=== PATIENT | female | born 1985 | race Caucasian/White ===

== ENCOUNTER 2019-03-29 18:33 | Emergency (ER) | payer SELFPAY ==
--- NOTE | 2019-03-29 20:04 | CR ---
INDICATION: Cough for 3 weeks COMPARISON: None available. FINDINGS: PA and lateral views of the chest were obtained. The lungs are clear. No focal or diffuse infiltrates are present. The heart is normal in size. The mediastinum is normal in appearance. The osseous structures are normal in appearance for the patient`s age. IMPRESSION: Normal chest 2 views. Dictated by Kvng Childs MD @ Mar 29 2019 8:03PM Signed by Dr. Kvng Childs @ Mar 29 2019 8:03PM
--- NOTE | 2019-03-29 20:07 | EDM.PDOC ---
ED HPI GENERAL MEDICAL PROBLEM - General Chief Complaint: ENT Problem Stated Complaint: PT HAS COUGH Time Seen by Provider: 03/29/19 20:06 Source of Information: Reports: Patient History Limitations: Reports: No Limitations - History of Present Illness INITIAL COMMENTS - FREE TEXT/NARRATIVE: HISTORY AND PHYSICAL: History of present illness: Patient is a 33-year-old female presents to the ED with complaint of cough x 3 weeks. She reports nasal congestion and coughing up greenish sputum. She has an episode of vomiting today. Denies chest pain, abdominal pain, diarrhea, shortness of breath. She smokes 1/2 ppd x 10 years. Review of systems: As per history of present illness and below otherwise all systems reviewed and negative. Past medical history: As per history of present illness and as reviewed below otherwise noncontributory. Surgical history: As per history of present illness and as reviewed below otherwise noncontributory. Social history: No reported history of drug or alcohol abuse. Family history: As per history of present illness and as reviewed below otherwise noncontributory. Physical exam: General: Patient sitting comfortably in no acute distress and nontoxic appearing HEENT: Atraumatic, normocephalic, pupils reactive, negative for conjunctival pallor or scleral icterus, mucous membranes moist, throat clear, neck supple, nontender, trachea midline. No meningeal signs. Lungs: Clear to auscultation, breath sounds equal bilaterally, chest nontender. Heart: S1S2, regular, negative for clicks, rubs, or overt murmur. Abdomen: Soft, nondistended, nontender. Negative for masses or hepatosplenomegaly. Negative for costovertebral tenderness. No rigidity, rebound , guarding. Pelvis: Stable nontender. Genitourinary: Deferred. Rectal: Deferred. Extremities: Atraumatic, negative for cords or calf pain. Neurovascular unremarkable. Neuro: Awake, alert, oriented. Cranial nerves II through XII unremarkable. Cerebellum unremarkable. Motor and sensory unremarkable throughout. Exam nonfocal. Notes: Diagnostics: Chest x-ray Therapeutics: [] Prescriptions: Azithromycin Ventolin inhaler Impression: Bronchitis Plan: Take medications as instructed Follow up with primary care provider Return to ED as needed as discussed Definitive disposition and diagnosis as appropriate pending reevaluation and review of above. - Related Data Allergies Allergy/AdvReac Type Severity Reaction Status Date / Time No Known Allergies Allergy Verified 03/29/19 18:53 Home Meds: Home Meds Albuterol [Ventolin HFA] 1 puff INH Q4H #1 inhaler 03/29/19 [Rx] Azithromycin [Zithromax] 250 mg PO ASDIRECTED #1 dosepk 03/29/19 [Rx] Past Medical History - Past Health History Medical/Surgical History: Denies Medical/Surgical History - Infectious Disease History Infectious Disease History: Reports: Chicken Pox, Hepatitis C, Shingles Social & Family History - Family History Family Medical History: Noncontributory - Tobacco Use Smoking Status *Q: Current Every Day Smoker Years of Tobacco use: 15 Packs/Tins Daily: 0.5 - Caffeine Use Caffeine Use: Reports: Coffee - Recreational Drug Use Recreational Drug Use: No ED ROS ENT - Review of Systems Review Of Systems: ROS reveals no pertinent complaints other than HPI. ED EXAM, ENT - Physical Exam Exam: See Below (see dictation) Course - Vital Signs Last Recorded V/S: Last Vital Signs Temp 97.7 F 03/29/19 18:54 Pulse 117 H 03/29/19 18:54 Resp 16 03/29/19 18:54 BP 119/92 H 03/29/19 18:54 Pulse Ox 99 03/29/19 18:54 - Orders/Labs/Meds Labs: Laboratory Tests 03/29/19 Range/Units 19:15 Urine HCG, Qual NEGATIVE (NEGATIVE) Departure - Departure Time of Disposition: 20:06 Disposition: Home, Self-Care 01 Condition: Good Clinical Impression: Bronchitis - Discharge Information Prescriptions: Albuterol [Ventolin HFA] 1 puff INH Q4H #1 inhaler Azithromycin [Zithromax] 250 mg PO ASDIRECTED #1 dosepk Instructions: Acute Bronchitis, Adult Referrals: PCP,None [Primary Care Provider] - Forms: ED Department Discharge Additional Instructions: The following information is given to patients seen in the emergency department who are being discharged to home. This information is to outline your options for follow-up care. We provide all patients seen in our emergency department with a follow-up referral. The need for follow-up, as well as the timing and circumstances, are variable depending upon the specifics of your emergency department visit. If you don't have a primary care physician on staff, we will provide you with a referral. We always advise you to contact your personal physician following an emergency department visit to inform them of the circumstance of the visit and for follow-up with them and/or the need for any referrals to a consulting specialist. The emergency department will also refer you to a specialist when appropriate. This referral assures that you have the opportunity for follow-up care with a specialist. All of these measure are taken in an effort to provide you with optimal care, which includes your follow-up. Under all circumstances we always encourage you to contact your private physician who remains a resource for coordinating your care. When calling for follow-up care, please make the office aware that this follow-up is from your recent emergency room visit. If for any reason you are refused follow-up, please contact the [facility] Emergency Department at and asked to speak to the emergency department charge nurse. [facility] [address] [place] [id number] [facility] [address] [place] [id number] Take medication as instructed Follow up with primary care provider Return to ED as needed as discussed
== END 2019-03-29 20:10 | disposition home or self-care (01) ==
LOC: MW.ED 18:33
DX: J40 Bronchitis, not specified as acute or chronic (principal); F17.200 Nicotine dependence, unspecified, uncomplicated
CPT/HCPCS: 71046; 71046-26; 81025; 99283-25

== ENCOUNTER 2020-02-06 01:57 | Emergency (ER) | payer SELFPAY ==
[2020-02-06] MEDS ORDERED: predniSONE 20 MG Tab PO ONE (02:18)
[2020-02-06] MEDS ORDERED: Albuterol/Ipratropium 3.0-0.5 MG/3 ML Neb Soln NEB ONE (02:18)
[2020-02-06] MEDS ORDERED: diphenhydrAMINE 50 MG Cap PO ONE (02:19)
[2020-02-06] MEDS ORDERED: Albuterol 8 GM Inhaler INH ONE ×2 (02:33→02:40)
[2020-02-06] MEDS ORDERED: Albuterol HFA 18 Gm Inhaler ONE (02:40)
--- NOTE | 2020-02-06 02:41 | EDM.PDOC ---
ED HPI GENERAL MEDICAL PROBLEM - General Chief Complaint: Respiratory Problem Stated Complaint: COUGH, LOTS OF PHLEGM Time Seen by Provider: 02/06/20 02:13 - History of Present Illness INITIAL COMMENTS - FREE TEXT/NARRATIVE: HISTORY AND PHYSICAL: History of present illness: This is a 34-year-old female with a history significant for allergic bronchitis since she has moved to [place] 1 year ago who presents ER today secondary to increased shortness of breath and wheezing that started ever since she moved in with her sister 5 days ago. Patient reports that her sister has 5 dogs and 4 cats that live with her in a small apartment and that she is currently sleeping in the basement. She reports that she has had some clear to green productive sputum and rhinorrhea. Patient denies any recent fevers, shakes, chills, na usea, vomiting, diarrhea, dysuria, frequency, urgency. Patient reports that she has chest pain with deep inspiration and cough. Patient reports no history of hypertension, diabetes, liver, lung, kidney problems. Patient reports she is smokes cigarettes. Patient has any alcohol. Patient has no known drug allergies. Review of systems: As per history of present illness and below otherwise all systems reviewed and negative. Past medical history: As per history of present illness and as reviewed below otherwise noncontributory. Surgical history: As per history of present illness and as reviewed below otherwise noncontributory. Social history: No reported history of drug or alcohol abuse. Family history: As per history of present illness and as reviewed below otherwise noncontribu tory. Physical exam: Constitutional: Patient is oriented to person, place, and time. Appears well- developed and well-nourished. No distress. HEENT: Moist mucous membranes Head: Normocephalic and atraumatic Eyes: Right eye exhibits no discharge. Left eye exhibits no discharge. No scleral icterus Neck: Normal range of motion. No tracheal deviation present. Cardiovascular: Normal rate and regular rhythm. Pulmonary: Effort normal, no respiratory distress. Patient with mild inspiratory and expiratory wheezing. No respiratory distress. Abdominal: No distention Musculoskeletal: Normal range of motion Neurologic: Alert and oriented to person, place and time. Skin: [place], warm and dry. Psychiatric: Normal mood and affect. Behavior is normal. Judgment and thought content normal. Nursing note and vital signs have been reviewed Assessment and plan: 34-year-old female who presents ER today with likely reactive airway disease from cat dander/allergies. Patient will be started on prednisone and albuterol. In the ED the patient was given a DuoNeb with significant improvement in her symptoms. Patient denies any coronavirus exposures. Patient be discharged home with albuterol given in the ED as well as a prescription for prednisone. Patient pulse ox is 99% on room air. Patient is ambulating the ED without any dyspnea. Patient stable for discharge. Reassessment at the time of disposition demonstrates that the patient is in no acute distress. The patient has remained stable throughout the entire ED visit and is without objective evidence for acute process requiring urgent intervention or hospitalization. The patient is stable for discharge, counseling is provided as documented above, discussed symptomatic treatment and specific conditions for return. I have spoken with the patient/caregive and discussed todays findings, in addition to providing specific details for the plan of care. Questions are answered and there is agreement with the plan. [] Definitive disposition and diagnosis as appropriate pending reevaluation and review of above. - Related Data Allergies Allergy/AdvReac Type Severity Reaction Status Date / Time No Known Allergies Allergy Verified 02/06/20 02:12 Home Meds: Home Meds predniSONE [Prednisone] 50 mg PO DAILY #5 tablet 02/06/20 [Rx] Past Medical History - Past Health History Medical/Surgical History: Denies Medical/Surgical History HEENT History: Reports: None Cardiovascular History: Reports: None Respiratory History: Reports: None Gastrointestinal History: Reports: None Genitourinary History: Reports: None BACK END DEVELOPER History: Reports: None Musculoskeletal History: Reports: None Neurological History: Reports: None Psychiatric History: Reports: Anxiety, Depression Endocrine/Metabolic History: Reports: None Insulin Pump Model and Vending Machine Attendant: None Hematologic History: Reports: None Immunologic History: Reports: None Oncologic (Cancer) History: Reports: None Dermatologic History: Reports: None - Infectious Disease History Infectious Disease History: Reports: None - Past Surgical History Head Surgeries/Procedures: Reports: None Social & Family History - Family History Family Medical History: Noncontributory - Tobacco Use Smoking Status *Q: Current Every Day Smoker Years of Tobacco use: 10 Packs/Tins Daily: 0.4 - Caffeine Use Caffeine Use: Reports: Coffee, Soda - Recreational Drug Use Recreational Drug Use: No ED ROS GENERAL - Review of Systems Review Of Systems: Comprehensive ROS is negative, except as noted in HPI. ED EXAM, GENERAL - Physical Exam Exam: See Below Course - Vital Signs Last Recorded V/S: Last Vital Signs Temp 96.8 F L 02/06/20 02:10 Pulse 106 H 02/06/20 02:10 Resp 18 02/06/20 02:10 BP 137/89 02/06/20 02:10 Pulse Ox 100 02/06/20 02:10 - Orders/Labs/Meds Orders: Active Orders 24 hr Category Date Time Status RT Aerosol Therapy [RC] ASDIRECTED Care 02/06/20 02:18 Active Albuterol [Ventolin HFA] Med 02/06/20 02:33 Once 1 gm INH ONETIME ONE Meds: Medications Discontinued Medications Generic Name Dose Route Start Last Admin Trade Name Gerhard PRN Reason Stop Dose Admin Albuterol 1 gm 02/06/20 02:33 Ventolin Hfa INH 02/06/20 02:34 ONETIME ONE Albuterol/Ipratropium 3 ml 02/06/20 02:18 02/06/20 02:23 Duoneb 3.0-0.5 Mg/3 Ml NEB 02/06/20 02:19 3 ml ONETIME ONE Administration Diphenhydramine HCl 50 mg 02/06/20 02:19 02/06/20 02:23 Benadryl PO 02/06/20 02:20 50 mg ONETIME ONE Administration Prednisone 50 mg 02/06/20 02:18 02/06/20 02:23 Prednisone PO 02/06/20 02:19 50 mg ONETIME ONE Administration Departure - Departure Time of Disposition: 02:41 Disposition: Home, Self-Care 01 Condition: Good Clinical Impression: Bronchitis - Discharge Information Instructions: Upper Respiratory Infection, Adult, [id number], Metered Dose Inhaler (No Spacer Used), Acute Bronchitis, Adult, [id number] Referrals: PCP,None [Primary Care Provider] - Additional Instructions: Your symptoms today appear to be likely related to allergic reaction either to environment or dog/cat dander. You will be given an inhaler today to use. You can use 2 to 4 puffs every 6 hours as needed for shortness of breath/wheezing. You will also be given a prescription for prednisone to take daily for the next 5 days. You can also take Benadryl to assist you with your symptoms as this is likely related to an allergic reaction. You may want to consider changing locations where you will be living and seeing if that helps in your symptoms. The following information is given to patients seen in the emergency department who are being discharged to home. This information is to outline your options for follow-up care. We provide all patients seen in our emergency department with a follow-up referral. The need for follow-up, as well as the timing and circumstances, are variable depending upon the specifics of your emergency department visit. If you don't have a primary care physician on staff, we will provide you with a referral. We always advise you to contact your personal physician following an emergency department visit to inform them of the circumstance of the visit and for follow-up with them and/or the need for any referrals to a consulting specialist. The emergency department will also refer you to a specialist when appropriate. This referral assures that you have the opportunity for follow-up care with a specialist. All of these measure are taken in an effort to provide you with optimal care, which includes your follow-up. Under all circumstances we always encourage you to contact your private physician who remains a resource for coordinating your care. When calling for follow-up care, please make the office aware that this follow-up is from your recent emergency room visit. If for any reason you are refused follow-up, please contact the [facility] Emergency Department at and asked to speak to the emergency department charge nurse. Sepsis Event Note (ED) - Evaluation Sepsis Screening Result: No Definite Risk - Focused Exam Vital Signs: Vital Signs Temp Pulse Resp BP Pulse Ox 02/06/20 02:10 96.8 F L 106 H 18 137/89 100 - My Orders Last 24 Hours: My Active Orders 02/06/20 02:18 RT Aerosol Therapy [RC] ASDIRECTED 02/06/20 02:33 Albuterol [Ventolin HFA] 1 gm INH ONETIME ONE - Assessment/Plan Last 24 Hours: My Active Orders 02/06/20 02:18 RT Aerosol Therapy [RC] ASDIRECTED 02/06/20 02:33 Albuterol [Ventolin HFA] 1 gm INH ONETIME ONE
== END 2020-02-06 02:50 | disposition home or self-care (01) ==
LOC: MW.ED 01:57
DX: J40 Bronchitis, not specified as acute or chronic (principal); F17.210 Nicotine dependence, cigarettes, uncomplicated
CPT/HCPCS: 99284; A9270; 99283; J3535-GY; J7620-GY

== ENCOUNTER 2020-03-25 22:41 | Emergency (ER) | payer OTHER ==
[2020-03-25] MEDS ORDERED: Prochlorperazine 10 MG/2 ML SDV IVPUSH ONE (23:13)
[2020-03-25] MEDS ORDERED: HYDROmorphone 2 MG/ML Syringe IVPUSH ONE (23:13)
[2020-03-25] MEDS ORDERED: Ketorolac 15 MG/ML SDV IVPUSH ONE (23:13)
--- NOTE | 2020-03-25 23:33 | EDM.PDOC ---
ED HPI GENERAL MEDICAL PROBLEM - General Chief Complaint: Abdominal Pain Stated Complaint: LOWER RT ABDOMINAL PAIN Time Seen by Provider: 03/25/20 22:44 - History of Present Illness INITIAL COMMENTS - FREE TEXT/NARRATIVE: HISTORY AND PHYSICAL: History of present illness: This 34-year-old female is currently incarcerated and was brought by the long-term staff after having abdominal pain that began yesterday afternoon and gradually worsened and is now focused in the right lower quadrant. She has had some nausea and vomiting and had no improvement with [id number] Motrin. The patient reports that she has no vaginal discharge or bleeding. She denies being . She is an IV drug abuser but currently has not had any intravenous drugs for approximately 1 month because she has been incarcerated. The pain is excruciating. Worse with movement. Better with sitting with her legs and knees bent. Review of systems: A 10-point review of systems, other than pertinent positives and negatives as stated per HPI, is otherwise negative. Past medical history: As per history of present illness and as reviewed below otherwise noncontributory. Surgical history: As per history of present illness and as reviewed below otherwise noncontributory. Social history: No reported history of drug or alcohol abuse. Family history: As per history of present illness and as reviewed below otherwise noncontributory. Physical exam: VITAL SIGNS: Reviewed. GENERAL: Appears to be in acute pain holding the right lower quadrant HEAD: No signs of head trauma. EYES: Pupils are equal. Extraocular motions intact. EARS: Hearing grossly intact. MOUTH: Oropharynx is normal. NECK: No adenopathy, no JVD. CHEST: Chest with clear breath sounds bilaterally. No wheezes, rales, or rhonchi. CARDIAC: Regular rate and rhythm. Normal S1 and S2, without murmurs, gallops, or rubs. VASCULAR: Peripheral pulses normal and equal in all extremities. ABDOMEN: Soft, rebound and guarding in the right lower quadrant, mild peritoneal signs in the other quadrants. No distention. No pulsatile masses MUSCULOSKELETAL: Good range of motion of all major joints. Extremities without clubbing, cyanosis or edema. NEUROLOGIC EXAM: Alert and oriented x 3. No focal sensory or motor deficits. Speech normal. Follows commands. PSYCHIATRIC: Mood normal. SKIN: No rash or lesions. LIMITED ABDOMINAL ULTRASOUND: Self-performed and read; Indication: Trauma and / or Hypotension 1. No Free fluid seen in the hepatorenal space (Morison's Pouch) 2. No Free Fluid seen in the suprapubic region (Pelvis) 3. No Free Fluid seen in the splenorenal space (LUQ) FINDINGS: No evidence of intraperitoneal free fluid IMPRESSION: Negative FAST exam. Signed by Brown Donald MD Procedure: Limited Abdominal Ultrasound - Right Upper Quadrant Performed and interpreted by me; Indication: Right upper quadrant/epigastric pain/flank pain Findings: -No gallstones -No pericholecystic fluid -Normal gallbladder wall thickness -Common Bile duct normal Interpretation: Normal right upper quadrant ultrasound No evidence of gallstones No evidence of cholecystitis Signed by Borwn Donald M.D. Limited Abdominal Ultrasound by ED MD Self-performed and read Location: Abdomen, RLQ Indication: Pain Probe: Curvilinear #1: Iliac Artery and Vein identified #2: No dilated fluid filled tubular structure identified #3: Some free fluid noted in the RLQ Impression: Indeterminate evidence of Appendicitis by POCUS Ultrasound Signed by Brown Donald MD Initial Differential Diagnosis & Plan: the differential diagnosis would include appendicitis, cholecystitis, pyelonephritis, pancreatitis, mesenteric infarction, diverticulitis, small bowel obstruction, volvulus, and ACS. Suspicious for kidney stone versus appendicitis versus ruptured ovarian cyst. Ultrasound is encouraging as there is trace amount of fluid in the right lower quadrant otherwise negative. I will obtain a CT scan, labs, and reevaluate the patient. I will give pain medications, nausea medications and continue to monitor Definitive disposition and diagnosis as appropriate pending reevaluation and review of above. Right Middle Abdomen Pain Score (Numeric/FACES): 10 - Related Data Allergies Allergy/AdvReac Type Severity Reaction Status Date / Time No Known Allergies Allergy Verified 02/06/20 02:12 Home Meds: Home Meds predniSONE [Prednisone] 50 mg PO DAILY #5 tablet 02/06/20 [Rx] Past Medical History - Past Health History Medical/Surgical History: Denies Medical/Surgical History HEENT History: Reports: None Cardiovascular History: Reports: None Respiratory History: Reports: None Gastrointestinal History: Reports: None Genitourinary History: Reports: None UNINDENTURED APPRENTICE History: Reports: None Musculoskeletal History: Reports: None Neurological History: Reports: None Psychiatric History: Reports: Anxiety, Depression Endocrine/Metabolic History: Reports: None Insulin Pump Model and Media Relations Associate: None Hematologic History: Reports: None Immunologic History: Reports: None Oncologic (Cancer) History: Reports: None Dermatologic History: Reports: None - Infectious Disease History Infectious Disease History: Reports: None - Past Surgical History Head Surgeries/Procedures: Reports: None Social & Family History - Family History Family Medical History: Noncontributory - Caffeine Use Caffeine Use: Reports: Coffee, Soda ED ROS GENERAL - Review of Systems Review Of Systems: See Below (noted) ED EXAM, GI/ABD - Physical Exam Exam: See Below (noted) Course - Vital Signs Last Recorded V/S: Last Vital Signs Temp 96.9 F 03/25/20 23:00 Pulse 83 03/25/20 23:00 Resp 20 03/25/20 23:00 BP 123/86 03/25/20 23:00 Pulse Ox 98 03/25/20 23:[address] reveals that she has severe colonic fecal retention which is the likely cause of her pain. Patient will receive an enema here in the emergency department along with lactulose. I will send her home with magnesium citrate and Metamucil. She has been having bowel movements so I do not feel that this represents obstruction. I will send her back to the long-term for management in the long-term with these [id number] medications. My diagnostic impression: 1. Severe colonic fecal retention 2. History of IV drug abuse with opioid dependence - Orders/Labs/Meds Orders: Active Orders 24 hr Category Date Time Status UA RFX LEXIE AND CULT IF INDIC [URIN] Stat Lab 03/25/20 23:12 Ordered Labs: Laboratory Tests 03/25/20 03/25/20 Range/Units 23:10 23:10 WBC 6.45 (4.0-11.0) K/uL RBC 4.35 (4.30-5.90) M/uL Hgb 13.5 (12.0-16.0) g/dL Hct 39.4 (36.0-46.0) % MCV 90.6 (80.0-98.0) fL MCH 31.0 (27.0-32.0) pg MCHC 34.3 (31.0-37.0) g/dL RDW Std Deviation 47.5 (28.0-62.0) fl RDW Coeff of Sean 14 (11.0-15.0) % Plt Count 205 (150-400) K/uL MPV 10.10 (7.40-12.00) fL Neut % (Auto) 52.1 (48.0-80.0) % Lymph % (Auto) 41.1 H (16.0-40.0) % [place] % (Auto) 5.7 (0.0-15.0) % Eos % (Auto) 0.8 (0.0-7.0) % Baso % (Auto) 0.3 (0.0-1.5) % Neut # (Auto) 3.4 (1.4-5.7) K/uL Lymph # (Auto) 2.7 H (0.6-2.4) K/uL [place] # (Auto) 0.4 (0.0-0.8) K/uL Eos # (Auto) 0.1 (0.0-0.7) K/uL Baso # (Auto) 0.0 (0.0-0.1) K/uL Sodium 140 (136-145) mmol/L Potassium 3.8 (3.5-5.1) mmol/L Chloride 105 (98-107) mmol/L Carbon Dioxide 24.3 (21.0-32.0) mmol/L BUN 14 (7.0-18.0) mg/dL Creatinine 0.8 (0.6-1.0) mg/dL Est Cr Clr Drug Dosing 90.00 mL/min Estimated GFR (MDRD) > 60.0 ml/min Glucose 83 (74-106) mg/dL Calcium 9.2 (8.5-10.1) mg/dL Total Bilirubin 1.1 H (0.2-1.0) mg/dL AST 13 L (15-37) IU/L ALT 26 (14-63) IU/L Alkaline Phosphatase 73 (46-116) U/L Total Protein 7.8 (6.4-8.2) g/dL Albumin 4.3 (3.4-5.0) g/dL Globulin 3.5 (2.6-4.0) g/dL Albumin/Globulin Ratio 1.2 (0.9-1.6) HCG, Quant 1.0 mIU/mL Meds: Medications Discontinued Medications Generic Name Dose Route Start Last Admin Trade Name Freq PRN Reason Stop Dose Admin Hydromorphone HCl 1 mg 03/25/20 23:13 03/25/20 23:22 Dilaudid IVPUSH 03/25/20 23:14 1 mg ONETIME ONE Administration Ketorolac Tromethamine 15 mg 03/25/20 23:13 03/25/20 23:22 Toradol IVPUSH 03/25/20 23:14 15 mg ONETIME ONE Administration Lactulose 10 gm 03/26/20 00:42 Chronulac PO 03/26/20 00:43 ONETIME ONE Prochlorperazine Edisylate 10 mg 03/25/20 23:13 03/25/20 23:20 Compazine IVPUSH 03/25/20 23:14 10 mg ONETIME ONE Administration Departure - Departure Time of Disposition: 00:46 (DC to long-term ) Disposition: Home, Self-Care 01 Clinical Impression: Fecal impaction of colon - Discharge Information *PRESCRIPTION DRUG MONITORING PROGRAM REVIEWED*: Not Applicable *COPY OF PRESCRIPTION DRUG MONITORING REPORT IN PATIENT MELANY: Not Applicable Instructions: Constipation, Adult, [id number] Referrals: PCP,None [Primary Care Provider] - Forms: ED Department Discharge Additional Instructions: The following information is given to patients seen in the emergency department who are being discharged to home. This information is to outline your options for follow-up care. We provide all patients seen in our emergency department with a follow-up referral. The need for follow-up, as well as the timing and circumstances, are variable depending upon the specifics of your emergency department visit. If you don't have a primary care physician on staff, we will provide you with a referral. We always advise you to contact your personal physician following an emergency department visit to inform them of the circumstance of the visit and for follow-up with them and/or the need for any referrals to a consulting specialist. The emergency department will also refer you to a specialist when appropriate. This referral assures that you have the opportunity for follow-up care with a specialist. All of these measure are taken in an effort to provide you with optimal care, which includes your follow-up. Thank you for coming to the [facility] urgency department for your care today. It was Dr. Donald's pleasure to take care of you. Please follow-up with medical at the long-term. You have severe colonic fecal retention. This is too much stool/feces in the colon causing distention and pain. This should improve by taking medications to help move your bowels. I have prescribed medications that I think will help. Please return for persistent vomiting, uncontrolled pain, fever or any other concerns. Under all circumstances we always encourage you to contact your private physician who remains a resource for coordinating your care. When calling for follow-up care, please make the office aware that this follow-up is from your recent emergency room visit. If for any reason you are refused follow-up, please contact the [facility] Emergency Department at and asked to speak to the emergency department charge nurse. Sepsis Event Note (ED) - Evaluation Sepsis Screening Result: No Definite Risk - Focused Exam Vital Signs: Vital Signs Temp Pulse Resp BP Pulse Ox 03/25/20 23:00 96.9 F 83 20 123/86 98 - My Orders Last 24 Hours: My Active Orders 03/25/20 23:12 UA RFX LEXIE AND CULT IF INDIC [URIN] Stat - Assessment/Plan Last 24 Hours: My Active Orders 03/25/20 23:12 UA RFX LEXIE AND CULT IF INDIC [URIN] Stat
[2020-03-25 23:46] LABS: BLOOD UREA NITROGEN,BUN 14 mg/dL (7.0-18.0); CARBON DIOXIDE,CO2 24.3 mmol/L (21.0-32.0); CHLORIDE,CL 105 mmol/L (98-107); GLUCOSE RANDOM 83 mg/dL (74-106); POTASSIUM,K 3.8 mmol/L (3.5-5.1); SODIUM,NA 140 mmol/L (136-145)
--- NOTE | 2020-03-26 00:40 | CT ---
INDICATION: Right upper quadrant pain TECHNIQUE: CT abdomen and pelvis without contrast. COMPARISON: None FINDINGS: Lower chest: Unremarkable. Liver: Unremarkable. Spleen: Unremarkable. Pancreas: Unremarkable. Gallbladder and bile ducts: Unremarkable. Kidneys: Punctate nonobstructing calculi mid zone inferior pole left kidney. No hydronephrosis. Adrenal glands: Unremarkable. GI tract: Diffuse colonic fecal retention. Appendix is normal. Vascular structures: Unremarkable. Lymph nodes: Unremarkable. Miscellaneous: Unremarkable. No free air or significant free fluid. Pelvic Organs: Unremarkable. Bones: Unremarkable for age. IMPRESSION: Diffuse colonic fecal retention. Punctate nonobstructing calculi mid zone inferior pole left kidney. No hydronephrosis. Dictated by Lacho Barber MD @ 03/26/2020 12:39:29 AM Please note that all CT scans at this facility use dose modulation, iterative reconstruction, and/or weight-based dosing when appropriate to reduce radiation dose to as low as reasonably achievable. Dictated by: Lacho Barber MD @ 03/26/2020 00:39:35 (Electronically Signed)
[2020-03-26] MEDS ORDERED: Lactulose Soln 10 GM/15 ML 15 ML UD Cup PO ONE (00:42)
== END 2020-03-26 01:18 ==
LOC: MW.ED 22:41
DX: K56.41 Fecal impaction (principal)
CPT/HCPCS: 36415; 74176; 74176-26; 80053; 84702; 85025; 96374; 96375; 99283; 99284-25; A9270-GY; J0780; J1170; J1885

== ENCOUNTER 2020-06-07 09:33 | Emergency (ER) | payer MEDICAID ==
--- NOTE | 2020-06-07 09:39 | EDM.PDOC ---
ED HPI GENERAL MEDICAL PROBLEM - General Stated Complaint: BACK AND LEG PAIN Time Seen by Provider: 06/07/20 09:34 Source of Information: Reports: Patient History Limitations: Reports: No Limitations - History of Present Illness INITIAL COMMENTS - FREE TEXT/NARRATIVE: 34-year-old female past medical history IV drug abuse, constipation, fecal impaction presents for difficulty with bowel movements, lower back pain, subjective lower extremity weakness. Patient denies recent drug abuse. She notes that for the last for 5 days she has had worsening constipation with only small hard bowel movements. She has had difficulty urinating stating that she is only voiding small amounts and that it hurts to urinate. She noted subjective weakness of her bilateral lower extremities right greater than left. She also has a lot of pain in her lower back radiating down to her lower extremities. She notes feelings of palpitations, subjective fever. general Pain Score (Numeric/FACES): 10 - Related Data Allergies Allergy/AdvReac Type Severity Reaction Status Date / Time No Known Allergies Allergy Verified 06/07/20 09:44 Home Meds: Home Meds . [No Known Home Meds] 06/07/20 [History] Past Medical History - Past Health History Medical/Surgical History: Denies Medical/Surgical History HEENT History: Reports: None Cardiovascular History: Reports: None Respiratory History: Reports: None Gastrointestinal History: Reports: Cholelithiasis Genitourinary History: Reports: Renal Calculus Other Genitourinary History: passed stone on her own [employer] History: Reports: None Musculoskeletal History: Reports: None Neurological History: Reports: None Psychiatric History: Reports: Anxiety, Depression Endocrine/Metabolic History: Reports: None Insulin Pump Model and Match Marker: None Hematologic History: Reports: None Immunologic History: Reports: None Oncologic (Cancer) History: Reports: None Dermatologic History: Reports: None - Infectious Disease History Infectious Disease History: Reports: None - Past Surgical History Head Surgeries/Procedures: Reports: None Social & Family History - Family History Family Medical History: No Pertinent Family History - Caffeine Use Caffeine Use: Reports: Coffee, Soda ED ROS GENERAL - Review of Systems Review Of Systems: Comprehensive ROS is negative, except as noted in HPI. ED EXAM, GENERAL - Physical Exam Exam: See Below Exam Limited By: No Limitations General Appearance: Alert, WD/WN, No Apparent Distress, Anxious Throat/Mouth: Normal Voice, No Airway Compromise Head: Atraumatic, Normocephalic Neck: Normal Inspection Respiratory/Chest: No Respiratory Distress, Lungs Clear, Normal Breath Sounds, No Accessory Muscle Use Cardiovascular: Normal Peripheral Pulses, No Edema, Tachycardia GI/Abdominal: Soft, Other (diffuse TTP without guarding or rebound) Back Exam: Normal Inspection, CVA Tenderness (L), CVA Tenderness (R), Paraspinal Tenderness, Vertebral Tenderness Extremities: Normal Inspection, Other (moves b/l LE, normal color and temperature of b/l LE) Neurological: Alert Psychiatric: Normal Mood, Anxious Skin Exam: Warm, Dry, Intact, Normal Color #1 Interpretation EKG Date: 06/07/20 Time: 10:10 Rhythm: NSR Rate (Beats/Min): 101 [place]: Normal P-Wave: Present QRS: Normal ST-T: Normal QT: Normal RI/PQ Interval: 146 Comparison: NA - No Prior EKG EKG Interpretation Comments: mild tachycardia Course - Vital Signs Last Recorded V/S: Last Vital Signs Temp 96.1 F L 06/07/20 09:45 Pulse 97 06/07/20 11:18 Resp 17 06/07/20 11:18 BP 126/81 06/07/20 11:18 Pulse Ox 99 06/07/20 11:18 - Orders/Labs/Meds Orders: Active Orders 24 hr Category Date Time Status Cardiac Monitoring [RC] . DIRECTED Care 06/07/20 10:02 Active EKG Documentation Completion [RC] STAT Care 06/07/20 10:02 Active Pulse Oximetry [RC] ASDIRECTED Care 06/07/20 10:02 Active CULTURE BLOOD [BC] Stat Lab 06/07/20 10:32 Received CULTURE BLOOD [BC] Stat Lab 06/07/20 10:34 Results Guaiac [OCCULT BLOOD DIAGNOSTIC] [OP] Stat Lab 06/07/20 10:23 Ordered Piperacillin/Tazobactam [Piperacil-Tazobact] 4.5 gm Med 06/07/20 13:35 Active Sodium Chloride 0.9% [Normal Saline] 100 ml IV ONETIME Sodium Chloride 0.9% [Saline Flush] Med 06/07/20 10:02 Active 10 ml FLUSH ASDIRECTED PRN Sodium Chloride 0.9% [Saline Flush] Med 06/07/20 10:02 Active 2.5 ml FLUSH ASDIRECTED PRN Vancomycin/Water for INJ (PEG) [Vancomycin 2 GM/400 ML Med 06/07/20 13:35 Active Premix] 2 gm Premix Bag 1 bag IV STAT Blood Culture x2 Reflex Set [OM.PC] Stat Oth 06/07/20 10:12 Ordered Saline Lock Insert [OM.PC] Stat Oth 06/07/20 10:02 Ordered Medication Orders Piperacillin Sod/Tazobactam (Sod 4.5 gm/ Sodium Chloride) 100 mls @ 100 mls/hr IV ONETIME ONE Stop: 06/07/20 14:34 Vancomycin HCl 2 gm/ Premix 400 mls @ 200 mls/hr IV STAT ONE Stop: 06/07/20 15:34 Sodium Chloride (Saline Flush) 10 ml FLUSH ASDIRECTED PRN PRN Reason: Keep Vein Open Last Admin: 06/07/20 10:35 Dose: 10 ml Documented by: OLVIN Sodium Chloride (Saline Flush) 2.5 ml FLUSH ASDIRECTED PRN PRN Reason: Keep Vein Open Last Admin: 06/07/20 10:35 Dose: 2.5 ml Documented by: OLVIN Labs: Laboratory Tests 06/07/20 06/07/20 06/07/20 Range/Units 10:04 10:04 10:04 WBC 11.33 H (4.0-11.0) K/uL RBC 4.14 L (4.30-5.90) M/uL Hgb 12.6 (12.0-16.0) g/dL Hct 37.4 (36.0-46.0) % MCV 90.3 (80.0-98.0) fL MCH 30.4 (27.0-32.0) pg MCHC 33.7 (31.0-37.0) g/dL RDW Std Deviation 45.8 (28.0-62.0) fl RDW Coeff of Sean 14 (11.0-15.0) % Plt Count 231 (150-400) K/uL MPV 9.70 (7.40-12.00) fL Neut % (Auto) 81.7 H (48.0-80.0) % Lymph % (Auto) 8.2 L (16.0-40.0) % [place] % (Auto) 9.5 (0.0-15.0) % Eos % (Auto) 0.4 (0.0-7.0) % Baso % (Auto) 0.2 (0.0-1.5) % Neut # (Auto) 9.3 H (1.4-5.7) K/uL Lymph # (Auto) 0.9 (0.6-2.4) K/uL [place] # (Auto) 1.1 H (0.0-0.8) K/uL Eos # (Auto) 0.0 (0.0-0.7) K/uL Baso # (Auto) 0.0 (0.0-0.1) K/uL Nucleated RBC % 0.0 /100WBC Nucleated RBCs # 0 K/uL ESR (0-19) mm/hr Lactate 3.2 H* (0.20-2.00) mmol/L Sodium 139 (136-145) mmol/L Potassium 3.6 (3.5-5.1) mmol/L Chloride 102 (98-107) mmol/L Carbon Dioxide 24.7 (21.0-32.0) mmol/L BUN 9 (7.0-18.0) mg/dL Creatinine 1.0 (0.6-1.0) mg/dL Est Cr Clr Drug Dosing 72.00 mL/min Estimated GFR (MDRD) > 60.0 ml/min Glucose 103 (74-106) mg/dL Calcium 9.9 (8.5-10.1) mg/dL Magnesium 2.3 (1.8-2.4) mg/dL Total Bilirubin 0.7 (0.2-1.0) mg/dL AST 15 (15-37) IU/L ALT 18 (14-63) IU/L Alkaline Phosphatase 186 H (46-116) U/L Troponin I < 0.050 (0.000-0.056) ng/mL C-Reactive Protein >12.00 (0.00-0.90) mg/dL Total Protein 7.9 (6.4-8.2) g/dL Albumin 3.0 L (3.4-5.0) g/dL Globulin 4.9 H (2.6-4.0) g/dL Albumin/Globulin Ratio 0.6 L (0.9-1.6) Lipase 23 L (73-393) U/L Urine Color Urine Appearance Urine pH (5.0-8.0) Ur Specific [place] (1.001-1.035) Urine Protein (NEGATIVE) mg/dL Urine Glucose (UA) (NEGATIVE) mg/dL Urine Ketones (NEGATIVE) mg/dL Urine Occult Blood (NEGATIVE) Urine Nitrite (NEGATIVE) Urine Bilirubin (NEGATIVE) Urine Urobilinogen (<2.0) EU/dL Ur Leukocyte Esterase (NEGATIVE) Urine RBC (0-2/HPF) Urine WBC (0-5/HPF) Ur Epithelial Cells (NONE-FEW) Urine Bacteria (NEGATIVE) Urine HCG, Qual (NEGATIVE) Urine Opiates Screen (NEGATIVE) Ur Oxycodone Screen (NEGATIVE) Urine Methadone Screen (NEGATIVE) Ur Barbiturates Screen (NEGATIVE) Ur Phencyclidine Scrn (NEGATIVE) Ur Amphetamine Screen (NEGATIVE) U Methamphetamines Scrn (NEGATIVE) U Benzodiazepines Scrn (NEGATIVE) U Cocaine Metab Screen (NEGATIVE) U Marijuana (THC) Screen (NEGATIVE) SARS-CoV-2 RNA (DEBI) (NEGATIVE) 06/07/20 06/07/20 06/07/20 Range/Units 10:04 11:05 11:05 WBC (4.0-11.0) K/uL RBC (4.30-5.90) M/uL Hgb (12.0-16.0) g/dL Hct (36.0-46.0) % MCV (80.0-98.0) fL MCH (27.0-32.0) pg MCHC (31.0-37.0) g/dL RDW Std Deviation (28.0-62.0) fl RDW Coeff of Sean (11.0-15.0) % Plt Count (150-400) K/uL MPV (7.40-12.00) fL Neut % (Auto) (48.0-80.0) % Lymph % (Auto) (16.0-40.0) % [place] % (Auto) (0.0-15.0) % Eos % (Auto) (0.0-7.0) % Baso % (Auto) (0.0-1.5) % Neut # (Auto) (1.4-5.7) K/uL Lymph # (Auto) (0.6-2.4) K/uL [place] # (Auto) (0.0-0.8) K/uL Eos # (Auto) (0.0-0.7) K/uL Baso # (Auto) (0.0-0.1) K/uL Nucleated RBC % /100WBC Nucleated RBCs # K/uL ESR 85 H (0-19) mm/hr Lactate (0.20-2.00) mmol/L Sodium (136-145) mmol/L Potassium (3.5-5.1) mmol/L Chloride (98-107) mmol/L Carbon Dioxide (21.0-32.0) mmol/L BUN (7.0-18.0) mg/dL Creatinine (0.6-1.0) mg/dL Est Cr Clr Drug Dosing mL/min Estimated GFR (MDRD) ml/min Glucose (74-106) mg/dL Calcium (8.5-10.1) mg/dL Magnesium (1.8-2.4) mg/dL Total Bilirubin (0.2-1.0) mg/dL AST (15-37) IU/L ALT (14-63) IU/L Alkaline Phosphatase (46-116) U/L Troponin I (0.000-0.056) ng/mL C-Reactive Protein (0.00-0.90) mg/dL Total Protein (6.4-8.2) g/dL Albumin (3.4-5.0) g/dL Globulin (2.6-4.0) g/dL Albumin/Globulin Ratio (0.9-1.6) Lipase (73-393) U/L Urine Color Urine Appearance Urine pH (5.0-8.0) Ur Specific [place] (1.001-1.035) Urine Protein (NEGATIVE) mg/dL Urine Glucose (UA) (NEGATIVE) mg/dL Urine Ketones (NEGATIVE) mg/dL Urine Occult Blood (NEGATIVE) Urine Nitrite (NEGATIVE) Urine Bilirubin (NEGATIVE) Urine Urobilinogen (<2.0) EU/dL Ur Leukocyte Esterase (NEGATIVE) Urine RBC (0-2/HPF) Urine WBC (0-5/HPF) Ur Epithelial Cells (NONE-FEW) Urine Bacteria (NEGATIVE) Urine HCG, Qual NEGATIVE (NEGATIVE) Urine Opiates Screen POSITIVE (NEGATIVE) Ur Oxycodone Screen NEGATIVE (NEGATIVE) Urine Methadone Screen NEGATIVE (NEGATIVE) Ur Barbiturates Screen NEGATIVE (NEGATIVE) Ur Phencyclidine Scrn NEGATIVE (NEGATIVE) Ur Amphetamine Screen POSITIVE (NEGATIVE) U Methamphetamines Scrn POSITIVE (NEGATIVE) U Benzodiazepines Scrn NEGATIVE (NEGATIVE) U Cocaine Metab Screen NEGATIVE (NEGATIVE) U Marijuana (THC) Screen NEGATIVE (NEGATIVE) SARS-CoV-2 RNA (DEBI) (NEGATIVE) 06/07/20 06/07/20 Range/Units 11:05 11:10 WBC (4.0-11.0) K/uL RBC (4.30-5.90) M/uL Hgb (12.0-16.0) g/dL Hct (36.0-46.0) % MCV (80.0-98.0) fL MCH (27.0-32.0) pg MCHC (31.0-37.0) g/dL RDW Std Deviation (28.0-62.0) fl RDW Coeff of Sean (11.0-15.0) % Plt Count (150-400) K/uL MPV (7.40-12.00) fL Neut % (Auto) (48.0-80.0) % Lymph % (Auto) (16.0-40.0) % [place] % (Auto) (0.0-15.0) % Eos % (Auto) (0.0-7.0) % Baso % (Auto) (0.0-1.5) % Neut # (Auto) (1.4-5.7) K/uL Lymph # (Auto) (0.6-2.4) K/uL [place] # (Auto) (0.0-0.8) K/uL Eos # (Auto) (0.0-0.7) K/uL Baso # (Auto) (0.0-0.1) K/uL Nucleated RBC % /100WBC Nucleated RBCs # K/uL ESR (0-19) mm/hr Lactate (0.20-2.00) mmol/L Sodium (136-145) mmol/L Potassium (3.5-5.1) mmol/L Chloride (98-107) mmol/L Carbon Dioxide (21.0-32.0) mmol/L BUN (7.0-18.0) mg/dL Creatinine (0.6-1.0) mg/dL Est Cr Clr Drug Dosing mL/min Estimated GFR (MDRD) ml/min Glucose (74-106) mg/dL Calcium (8.5-10.1) mg/dL Magnesium (1.8-2.4) mg/dL Total Bilirubin (0.2-1.0) mg/dL AST (15-37) IU/L ALT (14-63) IU/L Alkaline Phosphatase (46-116) U/L Troponin I (0.000-0.056) ng/mL C-Reactive Protein (0.00-0.90) mg/dL Total Protein (6.4-8.2) g/dL Albumin (3.4-5.0) g/dL Globulin (2.6-4.0) g/dL Albumin/Globulin Ratio (0.9-1.6) Lipase (73-393) U/L Urine Color YELLOW Urine Appearance CLEAR Urine pH 7.0 (5.0-8.0) Ur Specific [place] <= 1.005 (1.001-1.035) Urine Protein NEGATIVE (NEGATIVE) mg/dL Urine Glucose (UA) NEGATIVE (NEGATIVE) mg/dL Urine Ketones 15 H (NEGATIVE) mg/dL Urine Occult Blood TRACE-INTACT H (NEGATIVE) Urine Nitrite NEGATIVE (NEGATIVE) Urine Bilirubin NEGATIVE (NEGATIVE) Urine Urobilinogen 1.0 (<2.0) EU/dL Ur Leukocyte Esterase NEGATIVE (NEGATIVE) Urine RBC 0-2 (0-2/HPF) Urine WBC 0-3 (0-5/HPF) Ur Epithelial Cells FEW (NONE-FEW) Urine Bacteria RARE (NEGATIVE) Urine HCG, Qual (NEGATIVE) Urine Opiates Screen (NEGATIVE) Ur Oxycodone Screen (NEGATIVE) Urine Methadone Screen (NEGATIVE) Ur Barbiturates Screen (NEGATIVE) Ur Phencyclidine Scrn (NEGATIVE) Ur Amphetamine Screen (NEGATIVE) U Methamphetamines Scrn (NEGATIVE) U Benzodiazepines Scrn (NEGATIVE) U Cocaine Metab Screen (NEGATIVE) U Marijuana (THC) Screen (NEGATIVE) SARS-CoV-2 RNA (DEBI) NEGATIVE (NEGATIVE) Meds: Medications Generic Name Dose Route Start Last Admin Trade Name Freq PRN Reason Stop Dose Admin Piperacillin Sod/Tazobactam 100 mls @ 100 mls/hr 06/07/20 13:35 Sod 4.5 gm/ Sodium Chloride IV 06/07/20 14:34 ONETIME ONE Vancomycin HCl 2 gm/ Premix 400 mls @ 200 mls/hr 06/07/20 13:35 IV 06/07/20 15:34 STAT ONE Sodium Chloride 10 ml 06/07/20 10:02 06/07/20 10:35 Saline Flush FLUSH 10 ml ASDIRECTED PRN Administration Keep Vein Open Sodium Chloride 2.5 ml 06/07/20 10:02 06/07/20 10:35 Saline Flush FLUSH 2.5 ml ASDIRECTED PRN Administration Keep Vein Open Discontinued Medications Generic Name Dose Route Start Last Admin Trade Name Freq PRN Reason Stop Dose Admin Dexamethasone 10 mg 06/07/20 10:02 06/07/20 10:32 Decadron IVPUSH 06/07/20 10:03 10 mg ONETIME ONE Administration Diazepam 5 mg 06/07/20 10:39 06/07/20 10:39 Valium IVPUSH 06/07/20 10:40 5 mg ONETIME ONE Administration Diazepam Confirm 06/07/20 10:37 06/07/20 10:44 Valium Administered 06/07/20 10:38 Not Given Dose 10 mg .ROUTE .STK-MED ONE Hydromorphone HCl 1 mg 06/07/20 11:18 06/07/20 11:26 Dilaudid IVPUSH 06/07/20 11:19 1 mg ONETIME ONE Administration Hydromorphone HCl Confirm 06/07/20 11:20 06/07/20 11:27 Dilaudid Administered 06/07/20 11:21 Not Given Dose 1 mg .ROUTE .STK-MED ONE Hydromorphone HCl 1 mg 06/07/20 13:19 06/07/20 13:42 Dilaudid IVPUSH 06/07/20 13:20 Not Given ONETIME ONE Hydromorphone HCl 1 mg 06/07/20 13:40 06/07/20 13:43 Dilaudid IVPUSH 06/07/20 13:41 1 mg ONETIME ONE Administration Hydromorphone HCl Confirm 06/07/20 13:39 06/07/20 13:47 Dilaudid Administered 06/07/20 13:40 Not Given Dose 1 mg .ROUTE .STK-MED ONE Sodium Chloride 1,000 mls @ 999 mls/hr 06/07/20 10:02 06/07/20 10:26 Normal Saline IV 06/07/20 11:02 999 mls/hr .Bolus ONE Administration Sodium Chloride 1,000 mls @ 999 mls/hr 06/07/20 10:54 06/07/20 11:22 Normal Saline IV 06/07/20 11:54 999 mls/hr .Bolus ONE Administration Iopamidol 100 ml 06/07/20 13:17 06/07/20 13:17 Isovue Multipack-370 (76%) IVPUSH 06/07/20 13:18 100 ml ONETIME ONE Administration Ketorolac Tromethamine 15 mg 06/07/20 10:07 06/07/20 10:26 Toradol IVPUSH 06/07/20 10:08 15 mg ONETIME ONE Administration - Re-Assessments/Exams Free Text/Narrative Re-Assessment/Exam: 06/07/20 10:11 We will get broad labs, will get CT imaging of A/P and lumbar spine. While there is concern for spinal epidural abscess considering patient's history, she does move her lower extremities, and we do not have MRI readily available, and there are other more benign pathologic processes which may be causing her symptoms. I will follow up labs and imaging and determine need for MRI. Will give decadron 10mg now just in case. 06/07/20 10:22 LOG SCALER Chirag Donato performed rectal exam revealing guaiac positive stool, normal rectal tone. Guaiac positive. She notes that patient was able to easily move her b/l LE during the exam. Will f/u additional results and disposition accordingly. 06/07/20 11:18 Patient's pain poorly controlled, she is crying and writhing around in the bed. Will order Dilaudid for pain control 06/07/20 11:53 Labs are remarkable for leukocytosis of 11, elevated ESR, elevated CRP, elevated lactate. UA does not reveal evidence of infection. Urine test is negative. UDS reveals positive methamphetamine, amphetamine, opioids. 06/07/20 13:37 CT imaging reveals evidence of psoas abscess without bony involvement. Vancomycin and Zosyn ordered for antibiotic coverage. Will consult surgery for disposition recommendations admission versus transfer. 06/07/20 14:00 Dr. Johnson general surgery at our hospital recommends transfer of care. Spoke with [facility] ER physician Dr. Abreu who agrees to accept patient to his service. Departure - Departure Time of Disposition: 14:01 Disposition: DC/Tfer to Acute Hospital 02 Clinical Impression: Psoas abscess, left - Discharge Information Referrals: PCP,None [Primary Care Provider] - Critical Care Note - Critical Care Note Total Time (mins): 35 Sepsis Event Note (ED) - Focused Exam Vital Signs: Vital Signs Temp Pulse Resp BP Pulse Ox 06/07/20 11:18 97 17 126/81 99 06/07/20 10:46 91 17 122/73 98 06/07/20 09:45 96.1 F L 114 H 16 135/76 100 - My Orders Last 24 Hours: My Active Orders 06/07/20 10:02 Cardiac Monitoring [RC] . DIRECTED EKG Documentation Completion [RC] STAT Pulse Oximetry [RC] ASDIRECTED Sodium Chloride 0.9% [Saline Flush] 10 ml FLUSH ASDIRECTED PRN Sodium Chloride 0.9% [Saline Flush] 2.5 ml FLUSH ASDIRECTED PRN Saline Lock Insert [OM.PC] Stat 06/07/20 10:12 Blood Culture x2 Reflex Set [OM.PC] Stat 06/07/20 10:23 Guaiac [OCCULT BLOOD DIAGNOSTIC] [OP] Stat 06/07/20 10:32 CULTURE BLOOD [BC] Stat 06/07/20 10:34 CULTURE BLOOD [BC] Stat 06/07/20 13:35 Piperacillin/Tazobactam [Piperacil-Tazobact] 4.5 gm Sodium Chloride 0.9% [Normal Saline] 100 ml IV ONETIME Vancomycin/Water for INJ (PEG) [Vancomycin 2 GM/400 ML Premix] 2 gm Premix Bag 1 bag IV STAT - Assessment/Plan Last 24 Hours: My Active Orders 06/07/20 10:02 Cardiac Monitoring [RC] . DIRECTED EKG Documentation Completion [RC] STAT Pulse Oximetry [RC] ASDIRECTED Sodium Chloride 0.9% [Saline Flush] 10 ml FLUSH ASDIRECTED PRN Sodium Chloride 0.9% [Saline Flush] 2.5 ml FLUSH ASDIRECTED PRN Saline Lock Insert [OM.PC] Stat 06/07/20 10:12 Blood Culture x2 Reflex Set [OM.PC] Stat 06/07/20 10:23 Guaiac [OCCULT BLOOD DIAGNOSTIC] [OP] Stat 06/07/20 10:32 CULTURE BLOOD [BC] Stat 06/07/20 10:34 CULTURE BLOOD [BC] Stat 06/07/20 13:35 Piperacillin/Tazobactam [Piperacil-Tazobact] 4.5 gm Sodium Chloride 0.9% [Normal Saline] 100 ml IV ONETIME Vancomycin/Water for INJ (PEG) [Vancomycin 2 GM/400 ML Premix] 2 gm Premix Bag 1 bag IV STAT
[2020-06-07] MEDS ORDERED: Sodium Chloride 0.9% 1,000 ML IV ONE ×2 (10:02→10:54)
[2020-06-07] MEDS ORDERED: diazePAM 5 MG/ML MDV IV ONE (10:02)
[2020-06-07] MEDS ORDERED: Sodium Chloride 0.9% 10 ML Syringe FLUSH PRN (10:02)
[2020-06-07] MEDS ORDERED: Sodium Chloride 0.9% 2.5 ML Syringe FLUSH PRN (10:02)
[2020-06-07] MEDS ORDERED: Dexamethasone 10 MG/ML SDV IVPUSH ONE (10:02)
[2020-06-07] MEDS ORDERED: Ketorolac 15 MG/ML SDV IVPUSH ONE (10:07)
[2020-06-07 10:37] LABS: BLOOD UREA NITROGEN,BUN 9 mg/dL (7.0-18.0); CARBON DIOXIDE,CO2 24.7 mmol/L (21.0-32.0); CHLORIDE,CL 102 mmol/L (98-107); GLUCOSE RANDOM 103 mg/dL (74-106); LIPASE 23 U/L (73-393); POTASSIUM,K 3.6 mmol/L (3.5-5.1); SODIUM,NA 139 mmol/L (136-145)
[2020-06-07] MEDS ORDERED: HYDROmorphone 1 MG/ML Syringe IVPUSH ONE ×2 (11:18→13:40)
[2020-06-07] MEDS ORDERED: HYDROmorphone 1 MG/ML Syringe ONE ×2 (11:20→13:39)
[2020-06-07] MEDS ORDERED: Iopamidol 755 MG/ML 500 ML Multipack Bottle IVPUSH ONE (13:17)
[2020-06-07] MEDS ORDERED: HYDROmorphone 2 MG/ML Syringe IVPUSH ONE (13:19)
[2020-06-07] MEDS ORDERED: Piperacillin/Tazobactam 4.5 GM in Sodium Chloride 0.9% 100 ML IV ONE (13:35)
[2020-06-07] MEDS ORDERED: Vancomycin/Water for INJ (PEG) 2 GM in Premix Bag 1 BAG IV ONE (13:35)
--- NOTE | 2020-06-07 13:37 | CT ---
Indication: Constipation. Low back pain. Technique: Multiple contiguous axial images were obtained from the lung bases through the symphysis pubis after the intravenous administration of 100 cc Isovue 370. Please note that all CT scans at this facility use dose modulation, iterative reconstruction, and/or weight-based dosing when appropriate to reduce radiation dose to as low as reasonably achievable. Comparison: None Findings: The lung bases are clear. The heart is normal in size. No pericardial effusion is identified. The spleen is enlarged. The liver is borderline in size. The gallbladder is distended. No intrahepatic biliary ductal dilatation is identified. The pancreas, adrenals, and kidneys are normal. No intrahepatic biliary ductal dilatation is identified. No hydronephrosis is seen. In the pelvis, the urinary bladder is normal. The uterus is grossly normal. The ovaries are grossly normal. The small and large bowel are normal in caliber. No free air is identified within the abdomen or pelvis. Within the left psoas muscle, subtle area of low attenuation is identified. The left psoas muscle is slightly larger than the right. A subtle area of low attenuation is identified. This measures approximately 2.26 x 7.8 x 1.8 cm in size. Fat stranding is identified in the left pericolic gutter. Subtle amount of air is identified on the coronal images within this area of linear low attenuation. This is most consistent with a psoas abscess. Impression: Findings consistent with a left psoas abscess. Mild hepatosplenomegaly These findings were discussed with Dr. Turner at the time of this dictation. Please note that all CT scans at this facility use dose modulation, iterative reconstruction, and/or weight-based dosing when appropriate to reduce radiation dose to as low as reasonably achievable. Dictated by Edilma Amin MD @ Jun 07 2020 1:26PM Signed by Dr. Edilma Amin @ Jun 07 2020 1:35PM
--- NOTE | 2020-06-07 14:00 | CT ---
Indication Low back pain. Constipation. Intravenous drug use. TECHNIQUE: CT images through the lumbar spine were reformatted from the abdomen and pelvis following intravenous contrast. Comparison None. Findings Subtle enhancement within the ventral and left lateral spinal canal in the visualized lower thoracic region with extension caudally to at least the L2-3 level, concerning for epidural abscess. Large left psoas abscess extending caudally from the L2 level measures 2.1 x 1.8 x 8.1 cm (TR/AP/CC oblique). Left posterior paraspinal abscess on the dorsal margin of the left L2-3 facet joint measuring 2.4 cm (series 302, image 46). No endplate destruction to suggest sequelae of discitis osteomyelitis. The lumbar lordosis preserved. Vertebral body heights maintained. No acute fracture or spondylolisthesis. At L4-5, posterior disc bulging. Moderate facet arthropathy with widening of the facet joints. Ligamentum flavum thickening. Moderately severe spinal canal stenosis. [id number] bilateral neural foraminal narrowing. IMPRESSION: 1. Subtle enhancement within the ventral and left lateral spinal canal in the visualized lower thoracic region with extension caudally to at least the L2-3 level, highly concerning for epidural abscess. Large 8 cm left psoas abscess extending caudally from the L2 level. Posterior paraspinal abscess measuring 2.4 cm along the dorsal margin left L2-3 facet joint. Contrast enhanced MRI would be recommended for further evaluation of these findings. 2. At L4-5, moderately severe spinal canal stenosis. [id number] bilateral neural foraminal narrowing. Discussed these findings with Dr. Turner at 1350 hrs. Please note that all CT scans at this facility use dose modulation, iterative reconstruction, and/or weight-based dosing when appropriate to reduce radiation dose to as low as reasonably achievable. Dictated by Rome Benoit MD @ Jun 07 2020 1:40PM Signed by Dr. Rome Benoit @ Jun 07 2020 1:58PM
[2020-06-07] MEDS ORDERED: Vancomycin 2 GM in Sodium Chloride 0.9% 500 ML IV ONE (15:14)
== END 2020-06-07 15:30 ==
LOC: MW.ED 09:33
DX: K68.12 Psoas muscle abscess (principal); R00.0 Tachycardia, unspecified; Z20.828 Contact with and (suspected) exposure to other viral communicable diseases
CPT/HCPCS: 36415; 72131; 74177; 80053; 80305; 81001; 81025; 83605; 83690; 83735; 84484; 85025; 85652; 86140; 87040; 87186; 87635; 93005; 96365; 96375; 96376; 99285; J1100; J1170; J1885; J2543; J3360; J3370; J7030; J7040; J7050; Q9967; 99291; U0002

== ENCOUNTER 2020-07-14 07:30 | Emergency (ER) | payer MEDICAID ==
--- NOTE | 2020-07-14 08:10 | EDM.PDOC ---
ED HPI GENERAL MEDICAL PROBLEM - General Chief Complaint: Back Pain or Injury Stated Complaint: BACK PAIN Time Seen by Provider: 07/14/20 07:44 Source of Information: Reports: Patient History Limitations: Reports: No Limitations - History of Present Illness INITIAL COMMENTS - FREE TEXT/NARRATIVE: 36-year-old female with history of spinal stenosis status post back surgery for epidural abscess was BIBA for worsening back pain for 1 week. Her pain is localized to the thoracic and lumbar spine, constant, rated 10/10, associated with lower extremity intermittent weakness and intermittent pain down the right lower extremity. She fell 1 week ago when she was walking because her legs gave out. She uses IV drugs. PD initially found a used needle syringe in her purse, which she initially denied and claimed was her husbands. Upon further questioning, she confessed that she used it, and her last meth use was yesterday. She was seen here on 06/07/20, and CT A/P demonstrated left psoas abscess, CT lumbar spine showed findings worrisome for epidural abscess, she was transferred to [place] for surgery on 06/07/2020. She was later found to have another abscess to her right lung/rib area where she had chest tube and drain tube placed. She had her melanie taken out 7 days ago. Associated symptoms include subjective fever, nausea, vomiting. She denies chills, abdominal pain, urinary or fecal incontinence. She is currently taking ibuprofen, soma and ciprofloxacin. ROS: A 10-point review of systems, other than pertinent positives and negatives as stated per HPI, is otherwise negative Past medical history: No additional pertinent history Past Surgical history: No additional pertinent history Social history: No additional pertinent history Family history: No additional pertinent history PHYSICAL EXAM General: AOx4, GCS = 15, mild distress, tweaking HEENT: dry mucous membrane Neck: supple, no meningismus, no Kernig or Brudzinski Cardiac: S1S2 tachycardia Chest wall: Right lateral rib drain tube site tender to palpation with mild surrounding erythema. Respiratory: CTAB, no crackles or rales, no wheezing Abdomen: Soft, nontender, no rebound or guarding, nondistended, no pulsatile mass. : No saddle paresthesia, normal tone Back: Tenderness to the thoracic and lumbar spine with mild erythema around incision. Musculoskeletal: NVI distally, no deformity Neuro: No focal deficits, 5/5 strength with bilateral feet dorsiflexion and plantar flexion, normal sensation to bilateral feet. Back Pain Score (Numeric/FACES): 10 - Related Data Allergies Allergy/AdvReac Type Severity Reaction Status Date / Time No Known Allergies Allergy Verified 07/14/20 07:36 Home Meds: Home Meds Ciprofloxacin HCl [Cipro] 500 mg PO BID 07/14/20 [History] Past Medical History - Past Health History Medical/Surgical History: Denies Medical/Surgical History HEENT History: Reports: None Cardiovascular History: Reports: None Respiratory History: Reports: None Gastrointestinal History: Reports: Cholelithiasis Genitourinary History: Reports: Renal Calculus Other Genitourinary History: passed stone on her own CARE TRANSPORT NURSE History: Reports: None Musculoskeletal History: Reports: Back Pain, Chronic Neurological History: Reports: None Psychiatric History: Reports: Anxiety, Depression, PTSD Endocrine/Metabolic History: Reports: None Insulin Pump Model and Hot Box Operator: None Hematologic History: Reports: None Immunologic History: Reports: None Oncologic (Cancer) History: Reports: None Dermatologic History: Reports: None - Infectious Disease History Infectious Disease History: Reports: Chicken Pox, Hepatitis C, Rubella - Past Surgical History Head Surgeries/Procedures: Reports: None HEENT Surgical History: Reports: Oral Surgery Other Musculoskeletal Surgeries/Procedures:: back surgery 06/07/2020 Social & Family History - Family History Family Medical History: No Pertinent Family History - Tobacco Use Tobacco Use Status *Q: Current Every Day Tobacco User Years of Tobacco use: 20 Packs/Tins Daily: 1 - Caffeine Use Caffeine Use: Reports: Coffee, Energy Drinks - Recreational Drug Use Recreational Drug Type: Reports: Heroin, Marijuana/Hashish, Methamphetamine Recreational Drug Use Frequency: Weekly ED ROS GENERAL - Review of Systems Review Of Systems: See Below (see dictation) ED EXAM, GENERAL - Physical Exam Exam: See Below (see dictation) Course - Vital Signs Last Recorded V/S: Last Vital Signs Temp 97.2 F 07/14/20 08:24 Pulse 85 07/14/20 15:10 Resp 16 07/14/20 15:10 BP 85/36 L 07/14/20 15:10 Pulse Ox 98 07/14/20 15:10 - Orders/Labs/Meds Orders: Active Orders 24 hr Category Date Time Status CULTURE BLOOD [BC] Stat Lab 07/14/20 08:05 Received CULTURE BLOOD [BC] Stat Lab 07/14/20 08:50 Received Cefepime [Maxipime in D5W 2 GM/50 ML] 2 gm Med 07/14/20 17:05 Ordered Premix Bag 1 bag IV ONETIME Sodium Chloride 0.9% [Saline Flush] Med 07/14/20 08:22 Active 10 ml FLUSH ASDIRECTED PRN Sodium Chloride 0.9% [Saline Flush] Med 07/14/20 08:22 Active 2.5 ml FLUSH ASDIRECTED PRN Vancomycin 1 gm Med 07/14/20 17:35 Active Sodium Chloride 0.9% [Normal Saline (AdvBag)] 250 ml IV Q8H metroNIDAZOLE/Normal Saline [Flagyl 500 MG in NS 100 ML Med 07/14/20 17:05 Ordered ] 500 mg Premix Bag 1 bag IV ONETIME Blood Culture x2 Reflex Set [OM.PC] Stat Oth 07/14/20 07:51 Ordered Saline Lock Insert [OM.PC] Stat Oth 07/14/20 08:22 Ordered Medication Orders Cefepime HCl 2 gm/ Premix 50 mls @ 100 mls/hr IV ONETIME ONE Stop: 07/14/20 17:34 Metronidazole 500 mg/ Premix 100 mls @ 100 mls/hr IV ONETIME ONE Stop: 07/14/20 18:04 Vancomycin HCl 1 gm/ Sodium (Chloride) 250 mls @ 166.667 mls/hr IV Q8H VITALIY Sodium Chloride (Saline Flush) 10 ml FLUSH ASDIRECTED PRN PRN Reason: Keep Vein Open Last Admin: 07/14/20 08:30 Dose: 10 ml Documented by: PHILIP Sodium Chloride (Saline Flush) 2.5 ml FLUSH ASDIRECTED PRN PRN Reason: Keep Vein Open Last Admin: 07/14/20 08:30 Dose: 2.5 ml Documented by: [id number] Labs: Laboratory Tests 07/14/20 07/14/20 07/14/20 Range/Units 08:05 08:05 08:05 WBC (4.0-11.0) K/uL RBC (4.30-5.90) M/uL Hgb (12.0-16.0) g/dL Hct (36.0-46.0) % MCV (80.0-98.0) fL MCH (27.0-32.0) pg MCHC (31.0-37.0) g/dL RDW Std Deviation (28.0-62.0) fl RDW Coeff of Sean (11.0-15.0) % Plt Count (150-400) K/uL MPV (7.40-12.00) fL Neut % (Auto) (48.0-80.0) % Lymph % (Auto) (16.0-40.0) % [place] % (Auto) (0.0-15.0) % Eos % (Auto) (0.0-7.0) % Baso % (Auto) (0.0-1.5) % Neut # (Auto) (1.4-5.7) K/uL Lymph # (Auto) (0.6-2.4) K/uL [place] # (Auto) (0.0-0.8) K/uL Eos # (Auto) (0.0-0.7) K/uL Baso # (Auto) (0.0-0.1) K/uL Nucleated RBC % /100WBC Nucleated RBCs # K/uL ESR 55 H (0-19) mm/hr INR Lactate 0.9 (0.20-2.00) mmol/L Sodium 134 L (136-145) mmol/L Potassium 4.0 (3.5-5.1) mmol/L Chloride 100 (98-107) mmol/L Carbon Dioxide 23.4 (21.0-32.0) mmol/L BUN 19 H (7.0-18.0) mg/dL Creatinine 0.7 (0.6-1.0) mg/dL Est Cr Clr Drug Dosing 97.79 mL/min Estimated GFR (MDRD) > 60.0 ml/min Glucose 115 H (74-106) mg/dL Calcium 9.1 (8.5-10.1) mg/dL Total Bilirubin 1.8 H (0.2-1.0) mg/dL AST 31 (15-37) IU/L ALT 23 (14-63) IU/L Alkaline Phosphatase 98 (46-116) U/L Creatine Kinase (26-308) U/L C-Reactive Protein 11.50 H (0.00-0.90) mg/dL Total Protein 8.0 (6.4-8.2) g/dL Albumin 3.4 (3.4-5.0) g/dL Globulin 4.6 H (2.6-4.0) g/dL Albumin/Globulin Ratio 0.7 L (0.9-1.6) Urine Color Urine Appearance Urine pH (5.0-8.0) Ur Specific [place] (1.001-1.035) Urine Protein (NEGATIVE) mg/dL Urine Glucose (UA) (NEGATIVE) mg/dL Urine Ketones (NEGATIVE) mg/dL Urine Occult Blood (NEGATIVE) Urine Nitrite (NEGATIVE) Urine Bilirubin (NEGATIVE) Urine Urobilinogen (<2.0) EU/dL Ur Leukocyte Esterase (NEGATIVE) Urine RBC (0-2/HPF) Urine WBC (0-5/HPF) Ur Epithelial Cells (NONE-FEW) Urine Bacteria (NEGATIVE) Urine HCG, Qual (NEGATIVE) Urine Opiates Screen (NEGATIVE) Ur Oxycodone Screen (NEGATIVE) Urine Methadone Screen (NEGATIVE) Ur Barbiturates Screen (NEGATIVE) Ur Phencyclidine Scrn (NEGATIVE) Ur Amphetamine Screen (NEGATIVE) U Methamphetamines Scrn (NEGATIVE) U Benzodiazepines Scrn (NEGATIVE) U Cocaine Metab Screen (NEGATIVE) U Marijuana (THC) Screen (NEGATIVE) SARS-CoV-2 RNA (DEBI) (NEGATIVE) 07/14/20 07/14/20 07/14/20 Range/Units 08:05 08:05 08:05 WBC 9.81 (4.0-11.0) K/uL RBC 3.53 L (4.30-5.90) M/uL Hgb 10.3 L (12.0-16.0) g/dL Hct 32.6 L (36.0-46.0) % MCV 92.4 (80.0-98.0) fL MCH 29.2 (27.0-32.0) pg MCHC 31.6 (31.0-37.0) g/dL RDW Std Deviation 52.2 (28.0-62.0) fl RDW Coeff of Sean 15 (11.0-15.0) % Plt Count 315 (150-400) K/uL MPV 8.90 (7.40-12.00) fL Neut % (Auto) 73.1 (48.0-80.0) % Lymph % (Auto) 17.2 (16.0-40.0) % [place] % (Auto) 8.2 (0.0-15.0) % Eos % (Auto) 1.3 (0.0-7.0) % Baso % (Auto) 0.2 (0.0-1.5) % Neut # (Auto) 7.2 H (1.4-5.7) K/uL Lymph # (Auto) 1.7 (0.6-2.4) K/uL [place] # (Auto) 0.8 (0.0-0.8) K/uL Eos # (Auto) 0.1 (0.0-0.7) K/uL Baso # (Auto) 0.0 (0.0-0.1) K/uL Nucleated RBC % 0.0 /100WBC Nucleated RBCs # 0 K/uL ESR (0-19) mm/hr INR 1.03 Lactate (0.20-2.00) mmol/L Sodium (136-145) mmol/L Potassium (3.5-5.1) mmol/L Chloride (98-107) mmol/L Carbon Dioxide (21.0-32.0) mmol/L BUN (7.0-18.0) mg/dL Creatinine (0.6-1.0) mg/dL Est Cr Clr Drug Dosing mL/min Estimated GFR (MDRD) ml/min Glucose (74-106) mg/dL Calcium (8.5-10.1) mg/dL Total Bilirubin (0.2-1.0) mg/dL AST (15-37) IU/L ALT (14-63) IU/L Alkaline Phosphatase (46-116) U/L Creatine Kinase 272 (26-308) U/L C-Reactive Protein (0.00-0.90) mg/dL Total Protein (6.4-8.2) g/dL Albumin (3.4-5.0) g/dL Globulin (2.6-4.0) g/dL Albumin/Globulin Ratio (0.9-1.6) Urine Color Urine Appearance Urine pH (5.0-8.0) Ur Specific [place] (1.001-1.035) Urine Protein (NEGATIVE) mg/dL Urine Glucose (UA) (NEGATIVE) mg/dL Urine Ketones (NEGATIVE) mg/dL Urine Occult Blood (NEGATIVE) Urine Nitrite (NEGATIVE) Urine Bilirubin (NEGATIVE) Urine Urobilinogen (<2.0) EU/dL Ur Leukocyte Esterase (NEGATIVE) Urine RBC (0-2/HPF) Urine WBC (0-5/HPF) Ur Epithelial Cells (NONE-FEW) Urine Bacteria (NEGATIVE) Urine HCG, Qual (NEGATIVE) Urine Opiates Screen (NEGATIVE) Ur Oxycodone Screen (NEGATIVE) Urine Methadone Screen (NEGATIVE) Ur Barbiturates Screen (NEGATIVE) Ur Phencyclidine Scrn (NEGATIVE) Ur Amphetamine Screen (NEGATIVE) U Methamphetamines Scrn (NEGATIVE) U Benzodiazepines Scrn (NEGATIVE) U Cocaine Metab Screen (NEGATIVE) U Marijuana (THC) Screen (NEGATIVE) SARS-CoV-2 RNA (DEBI) (NEGATIVE) 07/14/20 07/14/20 07/14/20 Range/Units 08:10 10:15 10:15 WBC (4.0-11.0) K/uL RBC (4.30-5.90) M/uL Hgb (12.0-16.0) g/dL Hct (36.0-46.0) % MCV (80.0-98.0) fL MCH (27.0-32.0) pg MCHC (31.0-37.0) g/dL RDW Std Deviation (28.0-62.0) fl RDW Coeff of Sean (11.0-15.0) % Plt Count (150-400) K/uL MPV (7.40-12.00) fL Neut % (Auto) (48.0-80.0) % Lymph % (Auto) (16.0-40.0) % [place] % (Auto) (0.0-15.0) % Eos % (Auto) (0.0-7.0) % Baso % (Auto) (0.0-1.5) % Neut # (Auto) (1.4-5.7) K/uL Lymph # (Auto) (0.6-2.4) K/uL [place] # (Auto) (0.0-0.8) K/uL Eos # (Auto) (0.0-0.7) K/uL Baso # (Auto) (0.0-0.1) K/uL Nucleated RBC % /100WBC Nucleated RBCs # K/uL ESR (0-19) mm/hr INR Lactate (0.20-2.00) mmol/L Sodium (136-145) mmol/L Potassium (3.5-5.1) mmol/L Chloride (98-107) mmol/L Carbon Dioxide (21.0-32.0) mmol/L BUN (7.0-18.0) mg/dL Creatinine (0.6-1.0) mg/dL Est Cr Clr Drug Dosing mL/min Estimated GFR (MDRD) ml/min Glucose (74-106) mg/dL Calcium (8.5-10.1) mg/dL Total Bilirubin (0.2-1.0) mg/dL AST (15-37) IU/L ALT (14-63) IU/L Alkaline Phosphatase (46-116) U/L Creatine Kinase (26-308) U/L C-Reactive Protein (0.00-0.90) mg/dL Total Protein (6.4-8.2) g/dL Albumin (3.4-5.0) g/dL Globulin (2.6-4.0) g/dL Albumin/Globulin Ratio (0.9-1.6) Urine Color YELLOW Urine Appearance CLEAR Urine pH 6.0 (5.0-8.0) Ur Specific [place] >= 1.030 (1.001-1.035) Urine Protein NEGATIVE (NEGATIVE) mg/dL Urine Glucose (UA) NEGATIVE (NEGATIVE) mg/dL Urine Ketones 40 H (NEGATIVE) mg/dL Urine Occult Blood NEGATIVE (NEGATIVE) Urine Nitrite NEGATIVE (NEGATIVE) Urine Bilirubin NEGATIVE (NEGATIVE) Urine Urobilinogen 0.2 (<2.0) EU/dL Ur Leukocyte Esterase NEGATIVE (NEGATIVE) Urine RBC 0-2 (0-2/HPF) Urine WBC 0-2 (0-5/HPF) Ur Epithelial Cells RARE (NONE-FEW) Urine Bacteria RARE (NEGATIVE) Urine HCG, Qual (NEGATIVE) Urine Opiates Screen NEGATIVE (NEGATIVE) Ur Oxycodone Screen NEGATIVE (NEGATIVE) Urine Methadone Screen NEGATIVE (NEGATIVE) Ur Barbiturates Screen NEGATIVE (NEGATIVE) Ur Phencyclidine Scrn NEGATIVE (NEGATIVE) Ur Amphetamine Screen NEGATIVE (NEGATIVE) U Methamphetamines Scrn POSITIVE (NEGATIVE) U Benzodiazepines Scrn NEGATIVE (NEGATIVE) U Cocaine Metab Screen NEGATIVE (NEGATIVE) U Marijuana (THC) Screen NEGATIVE (NEGATIVE) SARS-CoV-2 RNA (DEBI) NEGATIVE (NEGATIVE) 07/14/20 Range/Units 10:15 WBC (4.0-11.0) K/uL RBC (4.30-5.90) M/uL Hgb (12.0-16.0) g/dL Hct (36.0-46.0) % MCV (80.0-98.0) fL MCH (27.0-32.0) pg MCHC (31.0-37.0) g/dL RDW Std Deviation (28.0-62.0) fl RDW Coeff of Sean (11.0-15.0) % Plt Count (150-400) K/uL MPV (7.40-12.00) fL Neut % (Auto) (48.0-80.0) % Lymph % (Auto) (16.0-40.0) % [place] % (Auto) (0.0-15.0) % Eos % (Auto) (0.0-7.0) % Baso % (Auto) (0.0-1.5) % Neut # (Auto) (1.4-5.7) K/uL Lymph # (Auto) (0.6-2.4) K/uL [place] # (Auto) (0.0-0.8) K/uL Eos # (Auto) (0.0-0.7) K/uL Baso # (Auto) (0.0-0.1) K/uL Nucleated RBC % /100WBC Nucleated RBCs # K/uL ESR (0-19) mm/hr INR Lactate (0.20-2.00) mmol/L Sodium (136-145) mmol/L Potassium (3.5-5.1) mmol/L Chloride (98-107) mmol/L Carbon Dioxide (21.0-32.0) mmol/L BUN (7.0-18.0) mg/dL Creatinine (0.6-1.0) mg/dL Est Cr Clr Drug Dosing mL/min Estimated GFR (MDRD) ml/min Glucose (74-106) mg/dL Calcium (8.5-10.1) mg/dL Total Bilirubin (0.2-1.0) mg/dL AST (15-37) IU/L ALT (14-63) IU/L Alkaline Phosphatase (46-116) U/L Creatine Kinase (26-308) U/L C-Reactive Protein (0.00-0.90) mg/dL Total Protein (6.4-8.2) g/dL Albumin (3.4-5.0) g/dL Globulin (2.6-4.0) g/dL Albumin/Globulin Ratio (0.9-1.6) Urine Color Urine Appearance Urine pH (5.0-8.0) Ur Specific [place] (1.001-1.035) Urine Protein (NEGATIVE) mg/dL Urine Glucose (UA) (NEGATIVE) mg/dL Urine Ketones (NEGATIVE) mg/dL Urine Occult Blood (NEGATIVE) Urine Nitrite (NEGATIVE) Urine Bilirubin (NEGATIVE) Urine Urobilinogen (<2.0) EU/dL Ur Leukocyte Esterase (NEGATIVE) Urine RBC (0-2/HPF) Urine WBC (0-5/HPF) Ur Epithelial Cells (NONE-FEW) Urine Bacteria (NEGATIVE) Urine HCG, Qual NEGATIVE (NEGATIVE) Urine Opiates Screen (NEGATIVE) Ur Oxycodone Screen (NEGATIVE) Urine Methadone Screen (NEGATIVE) Ur Barbiturates Screen (NEGATIVE) Ur Phencyclidine Scrn (NEGATIVE) Ur Amphetamine Screen (NEGATIVE) U Methamphetamines Scrn (NEGATIVE) U Benzodiazepines Scrn (NEGATIVE) U Cocaine Metab Screen (NEGATIVE) U Marijuana (THC) Screen (NEGATIVE) SARS-CoV-2 RNA (DEBI) (NEGATIVE) Meds: Medications Generic Name Dose Route Start Last Admin Trade Name Freq PRN Reason Stop Dose Admin Cefepime HCl 2 gm/ Premix 50 mls @ 100 mls/hr 07/14/20 17:05 IV 07/14/20 17:34 ONETIME ONE Metronidazole 500 mg/ Premix 100 mls @ 100 mls/hr 07/14/20 17:05 IV 07/14/20 18:04 ONETIME ONE Vancomycin HCl 1 gm/ Sodium 250 mls @ 166.667 mls/hr 07/14/20 17:35 Chloride IV Q8H VITALIY Sodium Chloride 10 ml 07/14/20 08:22 07/14/20 08:30 Saline Flush FLUSH 10 ml ASDIRECTED PRN Administration Keep Vein Open Sodium Chloride 2.5 ml 07/14/20 08:22 07/14/20 08:30 Saline Flush FLUSH 2.5 ml ASDIRECTED PRN Administration Keep Vein Open Discontinued Medications Generic Name Dose Route Start Last Admin Trade Name Freq PRN Reason Stop Dose Admin Gadobenate Dimeglumine 20 ml 07/14/20 14:05 07/14/20 14:05 Multihance IVPUSH 07/14/20 14:06 12 ml ONETIME STA Administration Sodium Chloride 1,000 mls @ 999 mls/hr 07/14/20 08:22 07/14/20 08:29 Normal Saline IV 07/14/20 09:22 999 mls/hr .Bolus ONE Administration Iopamidol 100 ml 07/14/20 11:08 07/14/20 12:00 Isovue Multipack-370 (76%) IVPUSH 07/14/20 11:09 100 ml ONETIME STA Administration Vancomycin HCl 1 dose 07/14/20 17:05 Pharmacy To Dose - Vancomycin .XX 07/14/20 17:06 ONETIME ONE - Re-Assessments/Exams Free Text/Narrative Re-Assessment/Exam: 07/14/20 16:[address] Gordon, on-call for neurosurgery, he recommends consulting in the ER at [place]. 07/14/20 17:07 Patient will require transfer to outside facility for the need of higher level of care not available at this facility, and the need for business travel consultant services unavailable at this facility. Any emergency conditions have been stabilized to the ability of the ED prior to the transfer. Case was discussed and accepted by Dr. 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 The services I provided to this patient were to treat and/or prevent clinically significant deterioration. Services included the following: chart data review, reviewing nursing notes and/or old charts, documentation time, business travel consultant collaboration regarding findings and treatment options, medication orders and management, direct patient care, vital sign assessments and ordering, interpreting and reviewing diagnostic studies/lab tests. Aggregate critical care time includes only time during which I was engaged in work directly related to the patient's care, as described above, whether at the bedside or elsewhere in the Emergency Department. It did not include time spent performing other reported procedures or the services of residents, students, nurses or physician assistants. Frequent interventions and/or frequent repeat evaluations were required as well as counseling and coordination of care regarding prognosis, treatments, and discussions with patient, staff and consultants. Critical Care (excluding other procedures): 40 minutes Sepsis Event Note (ED) - Evaluation Sepsis Screening Result: No Definite Risk - Focused Exam Vital Signs: Vital Signs Temp Pulse Resp BP Pulse Ox 07/14/20 15:10 85 16 85/36 L 98 07/14/20 12:20 94 94/47 L 96 07/14/20 12:05 93 98/42 L 95 07/14/20 11:50 93 107/60 98 07/14/20 11:35 92 101/56 L 97 07/14/20 11:32 91 94/70 97 07/14/20 11:06 87 107/48 L 96 07/14/20 10:50 90 104/56 L 100 07/14/20 10:30 87 100/54 L 97 07/14/20 10:00 88 106/60 98 07/14/20 09:27 102/57 L 07/14/20 09:12 105/57 L 07/14/20 08:57 97 87/57 L 99 07/14/20 08:42 93 86/46 L 98 07/14/20 08:27 88 93/42 L 98 07/14/20 08:24 97.2 F 91 18 93/42 L 98 07/14/20 07:39 96.6 F L 105 H 18 102/45 L 97 07/14/20 07:32 106 H 102/45 L 98 - My Orders Last 24 Hours: My Active Orders 07/14/20 07:51 Blood Culture x2 Reflex Set [OM.PC] Stat 07/14/20 08:05 CULTURE BLOOD [BC] Stat 07/14/20 08:22 Sodium Chloride 0.9% [Saline Flush] 10 ml FLUSH ASDIRECTED PRN Sodium Chloride 0.9% [Saline Flush] 2.5 ml FLUSH ASDIRECTED PRN Saline Lock Insert [OM.PC] Stat 07/14/20 08:50 CULTURE BLOOD [BC] Stat 07/14/20 17:05 Cefepime [Maxipime in D5W 2 GM/50 ML] 2 gm Premix Bag 1 bag IV ONETIME metroNIDAZOLE/Normal Saline [Flagyl 500 MG in NS 100 ML] 500 mg Premix Bag 1 bag IV ONETIME 07/14/20 17:35 Vancomycin 1 gm Sodium Chloride 0.9% [Normal Saline (AdvBag)] 250 ml IV Q8H - Assessment/Plan Last 24 Hours: My Active Orders 07/14/20 07:51 Blood Culture x2 Reflex Set [OM.PC] Stat 07/14/20 08:05 CULTURE BLOOD [BC] Stat 07/14/20 08:22 Sodium Chloride 0.9% [Saline Flush] 10 ml FLUSH ASDIRECTED PRN Sodium Chloride 0.9% [Saline Flush] 2.5 ml FLUSH ASDIRECTED PRN Saline Lock Insert [OM.PC] Stat 07/14/20 08:50 CULTURE BLOOD [BC] Stat 07/14/20 17:05 Cefepime [Maxipime in D5W 2 GM/50 ML] 2 gm Premix Bag 1 bag IV ONETIME metroNIDAZOLE/Normal Saline [Flagyl 500 MG in NS 100 ML] 500 mg Premix Bag 1 bag IV ONETIME 07/14/20 17:35 Vancomycin 1 gm Sodium Chloride 0.9% [Normal Saline (AdvBag)] 250 ml IV Q8H
[2020-07-14] MEDS ORDERED: Sodium Chloride 0.9% 10 ML Syringe FLUSH PRN (08:22)
[2020-07-14] MEDS ORDERED: Sodium Chloride 0.9% 2.5 ML Syringe FLUSH PRN (08:22)
[2020-07-14] MEDS ORDERED: Sodium Chloride 0.9% 1,000 ML IV ONE (08:22)
[2020-07-14 08:40] LABS: BLOOD UREA NITROGEN,BUN 19 mg/dL (7.0-18.0); CARBON DIOXIDE,CO2 23.4 mmol/L (21.0-32.0); CHLORIDE,CL 100 mmol/L (98-107); GLUCOSE RANDOM 115 mg/dL (74-106); SODIUM,NA 134 mmol/L (136-145)
[2020-07-14] MEDS ORDERED: Iopamidol 755 MG/ML 500 ML Multipack Bottle IVPUSH STA (11:08)
--- NOTE | 2020-07-14 12:10 | CT ---
INDICATION: Rev abscess TECHNIQUE: CT chest was acquired with 100 cc Isovue 370 IV contrast. COMPARISON: None FINDINGS: Cardiovascular structures: Heart size is normal. Thoracic aorta and main pulmonary artery are normal in caliber. Mediastinum and nate: No mass or adenopathy. Lungs: Clear. Pleura and pericardium: No effusions. Chest wall and axilla: No mass or adenopathy. Upper abdomen: Please see CT abdomen and pelvis for full description. Bones: There is an old right lateral 4th rib fracture with associated pleural thickening. IMPRESSION: No acute intrathoracic abnormality. Please note that all CT scans at this facility use dose modulation, iterative reconstruction, and/or weight-based dosing when appropriate to reduce radiation dose to as low as reasonably achievable. Dictated by Mónica Tatum MD @ Jul 14 2020 12:00PM Signed by Dr. Mónica Tatum @ Jul 14 2020 12:09PM
--- NOTE | 2020-07-14 12:18 | CT ---
INDICATION: Psoas abscess. COMPARISON: June 07, 2020 TECHNIQUE: CT examination of the abdomen and pelvis was performed following the uneventful intravenous administration of 100 cc of Isovue 370. Thin section axial images were obtained from the lung bases through the pubic symphysis. Oral contrast was not administered. Please note that all CT scans at this facility use dose modulation, iterative reconstruction, and/or weight-based dosing when appropriate to reduce radiation dose to as low as reasonably achievable. FINDINGS: LUNG BASES: Minimal bibasilar airspace process, right greater than left favor atelectasis.Heart size normal and lung bases. LIVER/BILIARY SYSTEM:Hepatic steatosis. No focal mass or biliary ductal dilatation.The gall bladder appears normal. ADRENALS: Normal KIDNEYS, URETERS and BLADDER:Kidneys are normal in size. There is a 3 millimeter calculus in the lower pole on the left without evidence of obstructive uropathy. The bladder appears normal. SPLEEN:Normal appearance. PANCREAS: Appears normal. RETROPERITONEUM and MESENTERY: There is no mass, adenopathy or aortic aneurysm. The findings of a left psoas abscess noted previously have resolved. GASTROINTESTINAL SYSTEM: There is no evidence of diverticulitis, colitis, mechanical obstruction, or appendicitis. The small bowel as visualized appears normal. PELVIS: No mass, adenopathy or free fluid. OSSEOUS STRUCTURES and ABDOMINAL WALL: There are extensive postsurgical changes involving laminectomy of the lower thoracic and lumbar spine. A dorsal fluid collection is seen in the erector spinae muscles which is probably a postoperative hematoma or seroma. If this requires further imaging,MRI would be the study of choice OTHER: No free fluid or free air. IMPRESSION: 1. Interval resolution of left-sided psoas hematoma. 2. Postsurgical changes involving extensive thoracolumbar laminectomy. A long thin dorsal fluid collection is seen in the erector spinae muscles immediately posterior to the spine which is probably a postoperative hematoma or seroma. This requires further imaging, MRI would be the study of choice Please note that all CT scans at this facility use dose modulation, iterative reconstruction, and/or weight-based dosing when appropriate to reduce radiation dose to as low as reasonably achievable. Dictated by Сергей Youssef MD @ Jul 14 2020 12:07PM Signed by Dr. Сергей Youssef @ Jul 14 2020 12:17PM
[2020-07-14] MEDS ORDERED: Gadobenate Dimeglumine 529 MG/ML 20 ML SDV IVPUSH STA (14:05)
--- NOTE | 2020-07-14 15:06 | MR ---
INDICATION: Neck pain. Status post recent lumbar spine surgery. TECHNIQUE: Multiplanar multisequence MR imaging was acquired through the cervical spine prior to and following intravenous contrast. COMPARISON: None. FINDINGS: Motion artifact degrades axial sequences and results in suboptimal evaluation. Slight reversal of cervical lordosis. Vertebral heights preserved. No acute fracture or spondylolisthesis. No concerning bone marrow signal abnormalities. No cord signal abnormalities are identified within exam limitations. No concerning pathologic enhancement. C2-3: No spinal canal or neural foraminal narrowing. C3-4: No spinal canal or neural foraminal narrowing. C4-5: Annular bulge. No spinal canal or neural foraminal narrowing. C5-6: Shallow posterior disc bulge. Right greater than left uncinate spurring. Mild spinal canal narrowing. Mild to moderate right and mild left neural foraminal narrowing. C6-7: Broad-based right central/subarticular disc extrusion extending 4 mm posterior to the disc space and demonstrating cephalad predominant migration indents the right hemicord, [id number] narrows the spinal canal, and potentially impinges the right C7 nerve root. The neural foramina are adequately patent. C7-T1: No spinal canal or neural foraminal narrowing. No spinal canal or neural foraminal narrowing in the visualized upper thoracic spine. IMPRESSION: 1. Motion artifact degrades axial sequences and results in suboptimal evaluation. 2. At C6-7, right central/subarticular disc extrusion potentially impinges the right C7 nerve root. [id number] spinal canal narrowing. 3. At C5-6, [id number] right and mild left neural foraminal narrowing. 4. Slight reversal of the cervical lordosis. Dictated by Rome Benoit MD @ Jul 14 2020 2:54PM Signed by Dr. Rome Benoit @ Jul 14 2020 3:05PM
--- NOTE | 2020-07-14 15:26 | MR ---
INDICATION: Back pain status post recent spinal decompression. TECHNIQUE: Multiplanar multisequence MR images of the lumbar spine prior to and following intravenous contrast. COMPARISON: CT abdomen pelvis 07/14/2020, CT lumbar spine 06/07/2020. FINDINGS: Motion artifact degrades multiple sequences, notably the sagittal T1 and STIR acquisitions. Postsurgical changes secondary to interval T11-12 through L5-S1 laminectomy. Extensive enhancement in the operative bed likely represents evolving granulation tissue. Heterogeneously T2 hyperintense collection within the laminectomy defect extending from L2 to L5-S1 measuring to 11.2 x 2.4 x 2.0 cm (CC/AP/TR) is without mass effect on the thecal sac. No evidence for discitis. Ill-defined and centrally T2 hyperintense signal abnormality within the left psoas muscle likely represents resolving infection/abscess. The lumbar lordosis is preserved. Vertebral heights maintained. No acute fracture. Normal conus terminates at L1-2. T12-L1 and L1-2: Postsurgical changes of laminectomy. No spinal canal or neural foraminal narrowing. L2-3: Postsurgical changes of laminectomy. No spinal canal narrowing. Blurring of left foraminal fat planes. The right neural foramen is widely patent. L3-4: Postsurgical changes of laminectomy. No spinal canal narrowing. Mild bilateral facet arthropathy. Right foraminal disc protrusion. No spinal canal narrowing. Moderate right without left neural foraminal narrowing. L4-5: Postsurgical changes of laminectomy. Minimal grade 1 anterolisthesis measuring 2 mm. Disc degeneration. Posterior disc bulge. Moderately advanced facet arthropathy. Mild spinal canal narrowing. Moderate bilateral neural foraminal narrowing. L5-S1: Postsurgical changes of laminectomy. Mild disc degeneration. Shallow posterior disc bulge. Mild bilateral facet arthropathy. No spinal canal narrowing. Minimal bilateral neural foraminal narrowing. IMPRESSION: 1. Motion artifact degrades multiple sequences and results in suboptimal evaluation. 2. Postsurgical changes of interval T11-12 through L5-S1 laminectomy. Fluid collection within the laminectomy bed from L2 through L5-S1 is without mass effect on the thecal sac and favored to represent an evolving seroma, though superimposed infection could be considered in the appropriate clinical setting. No evidence for discitis. Ill-defined and centrally T2 hyperintense signal abnormality within the left psoas muscle likely represents resolving infection/abscess. 3. Multilevel lumbar spondylosis without high-grade spinal canal stenosis. 4. At L3-4, right foraminal disc protrusion moderately narrows the right neural foramen with potential impingement of the exiting right L3 nerve root. 5. At L4-5, moderate bilateral neural foraminal narrowing with exiting L4 nerve root encroachment. Dictated by Rome Benoit MD @ Jul 14 2020 3:06PM Signed by Dr. Rome Benoit @ Jul 14 2020 3:24PM
--- NOTE | 2020-07-14 15:33 | MR ---
INDICATION: Back pain status post spine surgery. TECHNIQUE: Multiplanar multisequence MR imaging was acquired through the thoracic spine prior to and following intravenous contrast. COMPARISON: CT chest 07/14/2020. FINDINGS: Motion artifact degrades multiple sequences, particularly the sagittal T2 acquisition Postsurgical changes of laminectomy from T11-12 through the visualized upper lumbar spine with enhancement in the operative bed likely representing granulation tissue. No evidence for discitis or epidural abscess. The thoracic kyphosis is preserved. No acute fracture or spondylolisthesis. Diffusely decreased T1 marrow signal intensity. The thoracic cord is normal in signal intensity. Moderate facet arthropathy and bilateral facet joint effusions at T11-12. No spinal canal or neural foraminal stenosis. IMPRESSION: 1. Motion artifact degrades multiple sequences. 2. Postsurgical changes of laminectomy from T11-12 through the visualized upper lumbar spine. 3. No evidence for discitis or epidural abscess. 4. No spinal canal or neural foraminal stenosis. 5. Diffusely decreased T1 marrow signal abnormality is nonspecific, though differential considerations include red marrow conversion, chronic disease, or myeloproliferative/lymphoproliferative etiologies. Dictated by Rome Benoit MD @ Jul 14 2020 3:24PM Signed by Dr. Rome Benoit @ Jul 14 2020 3:32PM
[2020-07-14] MEDS ORDERED: metroNIDAZOLE/Normal Saline 500 MG in Premix Bag 1 BAG IV ONE (17:05)
[2020-07-14] MEDS ORDERED: Cefepime 2 GM in Premix Bag 1 BAG IV ONE (17:05)
[2020-07-14] MEDS ORDERED: metroNIDAZOLE/Normal Saline 100 ML ONE ×2 (17:20→17:41)
== END 2020-07-15 03:00 ==
LOC: MW.ED 07:30
DX: G97.82 Other postprocedural complications and disorders of nervous system (principal); G06.2 Extradural and subdural abscess, unspecified; F15.10 Other stimulant abuse, uncomplicated; Z72.0 Tobacco use; Z20.822 Contact with and (suspected) exposure to COVID-19
CPT/HCPCS: 36415; 71260; 72156; 72157; 72158; 74177; 80053; 80305; 81001; 81025; 82550; 83605; 85025; 85610; 85652; 86140; 87040; 87635; 96365; 96366; 96368; 96375; 99285; A9577; J0692; J3370; J3490; J7030; J7050; Q9967; U0002

== ENCOUNTER 2020-07-26 19:19 | Emergency (ER) | payer MEDICAID ==
--- NOTE | 2020-07-26 20:25 | EDM.PDOC ---
ED HPI GENERAL MEDICAL PROBLEM - General Chief Complaint: ENT Problem Stated Complaint: SORE TROATH Time Seen by Provider: 07/26/20 19:20 Source of Information: Reports: Patient History Limitations: Reports: No Limitations - History of Present Illness INITIAL COMMENTS - FREE TEXT/NARRATIVE: HISTORY AND PHYSICAL: History of present illness: Patient is a 35-year-old female presents emergency room today with concern of a sore throat x1 day. Patient states that she does use methamphetamine and did smoke some today Patient states that she has been able to eat and drink solids a nd liquids but does have some discomfort with swallowing and is concerned about strep throat. Patient denies any other associated symptoms. Patient denies fever, chills, chest pain, shortness of breath, or cough. Denies headache, neck stiff ness, change in vision, syncope, or near syncope. Denies nausea, vomiting, abdominal pain, diarrhea, constipation, or dysuria. Has not noted any blood in urine or stool. Patient has been eating and drinking appropriately. Review of systems: As per history of present illness and below otherwise all systems reviewed and negative. Past medical history: As per history of present illness and as reviewed below otherwise noncontributory. Surgical history: As per history of present illness and as reviewed below otherwise noncontributory. Social history: See social history for further information Family history: As per history of present illness and as reviewed below otherwise noncontributory. Physical exam: General: Patient is alert, oriented, and in no acute distress. Patient sitting comfortably on exam table. Vitals stable and reviewed by me. Patient does have some difficulty sitting still which she does express is related to recent metha mphetamine use. HEENT: Atraumatic, normocephalic, pupils equal and reactive bilaterally, negative for conjunctival pallor or scleral icterus, mucous membranes moist, TMs normal bilaterally, throat clear, uvula midline, neck supple, nontender, trachea midline. No drooling or trismus noted. No meningeal signs. No hot potato voice noted. Lungs: Clear to auscultation, breath sounds equal bilaterally, chest nontender. Heart: S1S2, regular rate and rhythm without overt murmur Abdomen: Soft, nondistended, nontender. Negative for masses or hepatosplenomegaly. Negative for costovertebral tenderness. Pelvis: Stable nontender. Genitourinary: Deferred. Rectal: Deferred. Skin: Intact, warm, dry. No lesions or rashes noted. Extremities: Atraumatic, negative for cords or calf pain. Neurovascular unremar kable. Neuro: Awake, alert, oriented. Cranial nerves II through XII unremarkable. Cerebellum unremarkable. Motor and sensory unremarkable throughout. Exam nonfocal. Notes: Signs and symptoms that would prompt return to the ED thoroughly discussed with patient. Discussed importance for follow-up with her primary care provider. Voices understanding and is agreeable to plan of care. Denies any further questions or concerns at this time. Diagnostics: Strep Therapeutics: None Prescription: None Impression: Pharyngitis Plan: 1. Use cough drops and/or other over the counter medications as needed for throat discomfort as discussed. Drink small but frequent sips of fluid to prevent dehydration. 2. Alternate Ibuprofen and Tylenol as directed for pain and discomfort. 3. Follow up with your primary care provider as discussed. 4. Return to the ED as needed and as discussed. Definitive disposition and diagnosis as appropriate pending reevaluation and review of above. Throat Pain Score (Numeric/FACES): 6 - Related Data Allergies Allergy/AdvReac Type Severity Reaction Status Date / Time No Known Allergies Allergy Verified 07/26/20 19:38 Home Meds: Home Meds Ciprofloxacin HCl [Cipro] 500 mg PO BID 07/14/20 [History] Past Medical History - Past Health History Medical/Surgical History: Denies Medical/Surgical History HEENT History: Reports: None Cardiovascular History: Reports: None Respiratory History: Reports: None Gastrointestinal History: Reports: Cholelithiasis Genitourinary History: Reports: Renal Calculus Other Genitourinary History: passed stone on her own RINK RAT History: Reports: None Musculoskeletal History: Reports: Back Pain, Chronic Neurological History: Reports: None Psychiatric History: Reports: Anxiety, Depression, PTSD Endocrine/Metabolic History: Reports: None 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 Hematologic History: Reports: None Immunologic History: Reports: None Oncologic (Cancer) History: Reports: None Dermatologic History: Reports: None - Infectious Disease History Infectious Disease History: Reports: Chicken Pox, Hepatitis C, Rubella - Past Surgical History Head Surgeries/Procedures: Reports: None HEENT Surgical History: Reports: Oral Surgery Other Musculoskeletal Surgeries/Procedures:: back surgery 06/07/2020 Social & Family History - Family History Family Medical History: No Pertinent Family History - Caffeine Use Caffeine Use: Reports: Coffee, Energy Drinks ED ROS GENERAL - Review of Systems Review Of Systems: Comprehensive ROS is negative, except as noted in HPI. ED EXAM, GENERAL - Physical Exam Exam: See Below (see dictation) Course - Vital Signs Last Recorded V/S: Last Vital Signs Temp 97.1 F 07/26/20 19:34 Pulse 96 07/26/20 19:34 Resp 18 07/26/20 19:34 BP 113/68 07/26/20 19:34 Pulse Ox 100 07/26/20 19:34 - Orders/Labs/Meds Labs: Laboratory Tests 07/26/20 Range/Units 19:52 Group A Strep (PCR) NOT DETECTED (NOT DETECT) Departure - Departure Time of Disposition: 20:24 Disposition: Home, Self-Care 01 Clinical Impression: Pharyngitis Qualifiers: Pharyngitis/tonsillitis etiology: unspecified etiology Qualified Code(s): J02.9 - Acute pharyngitis, unspecified - Discharge Information Referrals: PCP,None [Primary Care Provider] - Forms: ED Department Discharge Additional Instructions: The following information is given to patients seen in the emergency department who are being discharged to home. This information is to outline your options for follow-up care. We provide all patients seen in our emergency department with a follow-up referral. The need for follow-up, as well as the timing and circumstances, are variable depending upon the specifics of your emergency department visit. If you don't have a primary care physician on staff, we will provide you with a referral. We always advise you to contact your personal physician following an emergency department visit to inform them of the circumstance of the visit and for follow-up with them and/or the need for any referrals to a consulting specialist. The emergency department will also refer you to a specialist when appropriate. This referral assures that you have the opportunity for follow-up care with a specialist. All of these measure are taken in an effort to provide you with optimal care, which includes your follow-up. Under all circumstances we always encourage you to contact your private physician who remains a resource for coordinating your care. When calling for follow-up care, please make the office aware that this follow-up is from your recent emergency room visit. If for any reason you are refused follow-up, please contact the [facility] Emergency Department at and asked to speak to the emergency department charge nurse. NATALEE Chi [facility] [address] [place] [address] [facility] [address] [place] [id number] 1. Use cough drops and/or other over the counter medications as needed for throat discomfort as discussed. Drink small but frequent sips of fluid to prevent dehydration. 2. Alternate Ibuprofen and Tylenol as directed for pain and discomfort. 3. Follow up with your primary care provider as discussed. 4. Return to the ED as needed and as discussed. Sepsis Event Note (ED) - Evaluation Sepsis Screening Result: No Definite Risk - Focused Exam Vital Signs: Vital Signs Temp Pulse Resp BP Pulse Ox 07/26/20 19:34 97.1 F 96 18 113/68 100
== END 2020-07-26 20:44 | disposition home or self-care (01) ==
LOC: MW.ED 19:19
DX: J02.9 Acute pharyngitis, unspecified (principal)
CPT/HCPCS: 87651-QW; 99282; 99283

== ENCOUNTER 2020-11-07 14:42 | Emergency (ER) | payer MEDICAID ==
--- NOTE | 2020-11-07 15:14 | EDM.PDOC ---
ED HPI GENERAL MEDICAL PROBLEM - General Chief Complaint: General Stated Complaint: INTERNAL PAIN POST FALL 11.06.20 Time Seen by Provider: 11/07/20 14:46 Source of Information: Reports: Patient History Limitations: Reports: No Limitations - History of Present Illness INITIAL COMMENTS - FREE TEXT/NARRATIVE: HISTORY AND PHYSICAL: History of present illness: Patient is a 35-year-old female who presents to the emergency room with complaints of bilateral rib pain and back pain since falling out of her work truck. She denies hitting her head or having any loss of consciousness. She does have a history of chronic back pain but would like her lumbar spine x-rayed as it is more tender to touch since her fall. Denies any urinary or fecal incontinence. Denies any numbness, tingling, saddle paresthesias. No weakness with ambulation. Patient denies any fever, chills, headache, change in vision, syncope or near syncope. Denies any chest pain, back pain, shortness of breath or cough. Denies any GI or symptoms. Review of systems: As per history of present illness and below otherwise all systems reviewed and negative. Past medical history: As per history of present illness and as reviewed below otherwise noncontributory. Surgical history: As per history of present illness and as reviewed below otherwise noncontributory. Social history: See social history for further information Family history: As per history of present illness and as reviewed below otherwise noncontributory. Physical exam: General: Well developed and well nourished 35-year-old female. Alert and orientated x 3. Nontoxic in appearance and in no acute distress. Vital signs are stable and have been reviewed by me. Nursing notes were reviewed. HEENT: Atraumatic, nontender, normocephalic, pupils equal and reactive bilaterally, negative for conjunctival pallor or scleral icterus, mucous membranes moist, TMs normal bilaterally, throat clear, neck supple, nontender, trachea midline. No drooling or trismus noted. No meningeal signs. No hot potato voice noted. Lungs: Clear to auscultation bilaterally. No wheezes, rales, or rhonchi. Chest tender to lower lateral rib area. Normal work of breathing, no accessory muscles used. Heart: S1S2, regular rate and rhythm without overt murmur, gallops, or rubs. No JVD. No peripheral edema Abdomen: Soft, nondistended, nontender. Normoactive bowel sounds. Negative for masses or costovertebral tenderness. C-spine/Back: No pinpoint vertebral tenderness upon palpation. No crepitus, step-offs or obvious deformities. Patient is ambulatory into the emergency room without difficulty or deficit. Bilateral paraspinous muscular tenderness to the lumbar region. She is able to rock back on heels and walk on toes. Denies any urinary or fecal incontinence. Denies any numbness, tingling or saddle paresthesia. No concerns of serious infection, fracture or cord compression, or cauda equina syndrome. Deep tendon reflexes brisk bilaterally. Skin: Intact, warm, dry. No lesions or rashes noted. Hematologic: No petechiae or purpra. Mucosa appropriate color and normal nail bed color and refill. Extremities: Atraumatic, moves all extremities per self without difficulty or deficits, negative for cords or calf pain. Neurovascular unremarkable. Neuro: Awake, alert, oriented. Cranial nerves II through XII unremarkable. Cerebellum unremarkable. Motor and sensory unremarkable throughout. Exam nonfocal. Psychiatric: Mood and affect are appropriate. Normal thought process. Answering questions appropriately. Notes: *This patient was seen and evaluated during the 2019 SARS-CoV-2 novel coronavirus pandemic period. Community viral transmission is ongoing at time of this encounter and the emergency department is operating under pandemic response procedures. Lumbar x-ray shows postop changes of T12-L5 posterior decompression. L4-5 facet degenerative changes with degenerative grade 1 L4 anterolisthesis. Disk spaces well maintained. Exaggerated lumbar lordosis. Sacroiliac joints grossly negative. New pleural scarring in the lateral right base. Otherwise negative. I have talked with the patient about today's findings, in addition to providing specific details for plan of care. She declines wanting pain medication. Reassessment at the time of disposition demonstrates that the patient is in no acute distress. The patient is stable for discharge, counseling was provided and we discussed in great detail signs and symptoms that would prompt them to return to the Emergency Department. Medication, follow up and supportive care measures were reviewed and discussed. Voices understanding and is agreeable to plan of care. Denies any further questions or concerns at this time. Diagnostics: UA, HCGU, Lumbar x-ray, Chest x-ray Therapeutics: Declines Prescription: Diclofenac Impression: Fall Contusion Plan: 1. You were evaluated today on an emergent basis. Your x-ray shows no fractures. Gentle ice and/or heat to painful areas. 2. You can alternate Tylenol and ibuprofen as needed for pain and fever management. 3. We encourage you to follow up with your primary care provider and/or recommended specialist in the next few days for re-evaluation and further care/management. 4. If your symptoms should worsen, new symptoms develop or any of the signs and symptoms we discussed should arise please return to the emergency room or call [phone] (if needed). Definitive disposition and diagnosis as appropriate pending reevaluation and review of above. bilatera rib area Pain Score (Numeric/FACES): 7 - Related Data Allergies Allergy/AdvReac Type Severity Reaction Status Date / Time No Known Allergies Allergy Verified 11/07/20 15:14 Home Meds: Home Meds . 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 Musculoskeletal History: Reports: Back Pain, Chronic Neurological History: Reports: None Psychiatric History: Reports: Addiction, Anxiety, Depression, PTSD, Other (See Below) Other Psychiatric History: etoh and drug abuse Endocrine/Metabolic History: Reports: None Insulin Pump Model and Animal Husbandry Technician: None Hematologic History: Reports: None Immunologic History: Reports: None Oncologic (Cancer) History: Reports: None Dermatologic History: Reports: None - Infectious Disease History Infectious Disease History: Reports: Chicken Pox, Hepatitis C, Rubella - Past Surgical History Head Surgeries/Procedures: Reports: None HEENT Surgical History: Reports: Oral Surgery Other Musculoskeletal Surgeries/Procedures:: back surgery 06/07/2020 Social & Family History - Family History Family Medical History: No Pertinent Family History - Caffeine Use Caffeine Use: Reports: Coffee, Energy Drinks ED ROS GENERAL - Review of Systems Review Of Systems: Comprehensive ROS is negative, except as noted in HPI. ED EXAM, GENERAL - Physical Exam Exam: See Below (See dictation) Course - Vital Signs Last Recorded V/S: Last Vital Signs Temp 97.4 F 11/07/20 15:10 Pulse 101 H 11/07/20 15:10 Resp 17 11/07/20 15:10 BP 128/88 11/07/20 15:10 Pulse Ox 98 11/07/20 15:10 - Orders/Labs/Meds Orders: Active Orders 24 hr Category Date Time Status Chest 2V [CR] Stat Exams 11/07/20 15:48 Taken CULTURE URINE [RM] Stat Lab 11/07/20 15:17 Received Labs: Laboratory Tests 11/07/20 11/07/20 Range/Units 15:17 15:17 Urine Color YELLOW Urine Appearance CLEAR Urine pH 6.5 (5.0-8.0) Ur Specific [place] <= 1.005 (1.001-1.035) Urine Protein NEGATIVE (NEGATIVE) mg/dL Urine Glucose (UA) 100 H (NEGATIVE) mg/dL Urine Ketones NEGATIVE (NEGATIVE) mg/dL Urine Occult Blood NEGATIVE (NEGATIVE) Urine Nitrite NEGATIVE (NEGATIVE) Urine Bilirubin NEGATIVE (NEGATIVE) Urine Urobilinogen 0.2 (<2.0) EU/dL Ur Leukocyte Esterase TRACE H (NEGATIVE) Urine RBC 0-1 (0-2/HPF) Urine WBC 0-1 (0-5/HPF) Ur Epithelial Cells RARE (NONE-FEW) Urine Bacteria RARE (NEGATIVE) Urine HCG, Qual NEGATIVE (NEGATIVE) Departure - Departure Time of Disposition: 16:33 Disposition: Home, Self-Care 01 Clinical Impression: Fall Contusion Qualifiers: Encounter type: initial encounter Contusion area: thoracic wall Thoracic wall location detail: bilateral - Discharge Information Forms: ED Department Discharge Additional Instructions: The following information is given to patients seen in the emergency department who are being discharged to home. This information is to outline your options for follow-up care. We provide all patients seen in our emergency department with a follow-up referral. The need for follow-up, as well as the timing and circumstances, are variable depending upon the specifics of your emergency department visit. If you don't have a primary care physician on staff, we will provide you with a referral. We always advise you to contact your personal physician following an emergency department visit to inform them of the circumstance of the visit and for follow-up with them and/or the need for any referrals to a consulting specialist. The emergency department will also refer you to a specialist when appropriate. This referral assures that you have the opportunity for follow-up care with a specialist. All of these measure are taken in an effort to provide you with optimal care, which includes your follow-up. Under all circumstances we always encourage you to contact your private physician who remains a resource for coordinating your care. When calling for follow-up care, please make the office aware that this follow-up is from your recent emergency room visit. If for any reason you are refused follow-up, please contact the [facility] Emergency Department at and asked to speak to the emergency department charge nurse. [facility] [address] [place] [id number] [facility] [address] [place] [id number] Thank you for choosing the [facility] emergency department in [place] for your medical needs today. It was a pleasure caring for you. Today you were seen in the emergency department for pain after fall. 1. You were evaluated today on an emergent basis. Your x-ray shows no fractures. Gentle ice and/or heat to painful areas. 2. You can alternate Tylenol and ibuprofen as needed for pain and fever management. 3. We encourage you to follow up with your primary care provider and/or recommended specialist in the next few days for re-evaluation and further car e/management. 4. If your symptoms should worsen, new symptoms develop or any of the signs and symptoms we discussed should arise please return to the emergency room or call 911 (if needed). Sepsis Event Note (ED) - Focused Exam Vital Signs: Vital Signs Temp Pulse Resp BP Pulse Ox 11/07/20 15:10 97.4 F 101 H 17 128/88 98 - My Orders Last 24 Hours: My Active Orders 11/07/20 15:17 CULTURE URINE [RM] Stat 11/07/20 15:48 Chest 2V [CR] Stat - Assessment/Plan Last 24 Hours: My Active Orders 11/07/20 15:17 CULTURE URINE [RM] Stat 11/07/20 15:48 Chest 2V [CR] Stat
--- NOTE | 2020-11-07 16:30 | CR ---
INDICATION: Pain. TECHNIQUE: Three upright views of the lumbar spine. COMPARISON: None. FINDINGS: Postop changes of T12-L5 posterior decompression. L4-5 facet degenerative changes with degenerative grade 1 L4 anterolisthesis. Disk spaces well maintained. Exaggerated lumbar lordosis. Sacroiliac joints grossly negative. IMPRESSION: 1. Post posterior decompressions from T12-L5. 2. L4-5 facet degenerative changes with degenerative grade 1 L4 anterolisthesis. 3. Exaggerated lumbar lordosis. Dictated by Augustus Jordan MD @ 11/07/2020 4:28:[address] Augustus Jordan @ Nov 07 2020 4:28PM
--- NOTE | 2020-11-07 16:32 | CR ---
INDICATION: Chest pain and SOB. TECHNIQUE: PA and lateral. COMPARISON: 03/29/2019. FINDINGS: New pleural scarring at the lateral right base. No infiltrate or pleural effusion. Heart size and pulmonary vasculature within normal limits. No significant bony abnormality. IMPRESSION : New pleural scarring in the lateral right base. Otherwise negative. Dictated by Augustus Jordan MD @ 11/07/2020 4:30:[address] Augustus Jordan @ Nov 07 2020 4:30PM
== END 2020-11-07 17:02 | disposition home or self-care (01) ==
LOC: MW.ED 14:42
DX: S20.223A Contusion of bilateral back wall of thorax, initial encounter (principal); W17.89XA Other fall from one level to another, initial encounter
CPT/HCPCS: 71046; 71046-26; 72100; 72100-26; 81001; 81025; 87086; 99283; 99283-25

== ENCOUNTER 2020-11-09 01:51 | Emergency (ER) | payer MEDICAID ==
[2020-11-09] MEDS ORDERED: Ibuprofen 600 MG Tab PO ONE (02:13)
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
--- NOTE | 2020-11-09 03:27 | CR ---
Indication: Right rib pain Technique: Chest 1 view Comparison: Chest x-ray 11/07/2020 Findings/Impression: Cardiovascular and mediastinum: Heart size and vasculature are normal in caliber and appearance. Lungs and pleural space: Right pleural thickening redemonstrated. No pneumothorax or acute consolidation. Bones and soft tissues: Metal density overlies the aortic arch, presumed external. Dictated by Adam Soto MD @ 11/09/2020 3:26:[address] Adam Soto @ Nov 09 2020 3:26AM
== END 2020-11-09 03:04 | disposition home or self-care (01) ==
LOC: MW.ED 01:51
DX: R07.81 Pleurodynia (principal)
CPT/HCPCS: 71045; 99283; A9270

== ENCOUNTER 2020-11-22 20:50 | Emergency (ER) | payer MEDICAID ==
--- NOTE | 2020-11-22 21:01 | EDM.PDOC ---
ED HPI GENERAL MEDICAL PROBLEM - General Stated Complaint: BUMP ON HEAD Time Seen by Provider: 11/22/20 21:01 Source of Information: Reports: Patient History Limitations: Reports: No Limitations - History of Present Illness INITIAL COMMENTS - FREE TEXT/NARRATIVE: HISTORY AND PHYSICAL: History of present illness: Patient is a 35-year-old female who presents to the emergency room with complaints of a skin infection to the left amish. She states she had a blemish that she popped and is now red and tender. Patient denies any fever, chills, headache, change in vision, syncope or near syncope. Denies any chest pain, back pain, shortness of breath or cough. Denies any abdominal pain, nausea, vomiting, diarrhea, constipation or dysuria. Has not noted any blood in urine or stool. Patient has been eating and drinking appropriately. Review of systems: As per history of present illness and below otherwise all systems reviewed and negative. Past medical history: As per history of present illness and as reviewed below otherwise noncontributory. Surgical history: As per history of present illness and as reviewed below otherwise noncontributory. Social history: See social history for further information Family history: As per history of present illness and as reviewed below otherwise noncontributory. Physical exam: General: Well developed and well nourished. Alert and orientated x 3. Nontoxic in appearance and in no acute distress. Vital signs are stable and have been reviewed by me. Nursing notes were reviewed. HEENT: Atraumatic, normocephalic, pupils equal and reactive bilaterally, negative for conjunctival pallor or scleral icterus, mucous membranes moist, TMs normal bilaterally, throat clear, neck supple, nontender, trachea midline. No drooling or trismus noted. No meningeal signs. No hot potato voice noted. Lungs: Clear to auscultation bilaterally. No wheezes, rales, or rhonchi. Chest nontender. Normal work of breathing, no accessory muscles used. Heart: S1S2, regular rate and rhythm without overt murmur, gallops, or rubs. No JVD. No peripheral edema Skin: Healing blemish with mild erythema, approximately size of a dime. Nonfluctuant and nonindurated. Remaining skin is intact, warm, dry. No lesions or rashes noted. Hematologic: No petechiae or purpra. Mucosa appropriate color and normal nail bed color and refill. Extremities: Atraumatic, moves all extremities per self without difficulty or deficits, negative for cords or calf pain. Neurovascular unremarkable. Neuro: Awake, alert, oriented. Cranial nerves II through XII unremarkable. Cerebellum unremarkable. Motor and sensory unremarkable throughout. Exam nonfocal. Psychiatric: Mood and affect are appropriate. Normal thought process. Answering questions appropriately. Notes: *This patient was seen and evaluated during the 2019 SARS-CoV-2 novel coronavirus pandemic period. Community viral transmission is ongoing at time of this encounter and the emergency department is operating under pandemic response procedures. I have talked with the patient about today's findings, in addition to providing specific details for plan of care. Reassessment at the time of disposition demonstrates that the patient is in no acute distress. The patient is stable for discharge, counseling was provided and we discussed in great detail signs and symptoms that would prompt them to return to the Emergency Department. Medication, follow up and supportive care measures were reviewed and discussed. Voices understanding and is agreeable to plan of care. Denies any further questions or concerns at this time. Diagnostics: None Therapeutics: Keflex Prescription: Keflex Impression: Cellulitis Plan: 1. You were evaluated today on an emergent basis. Keep the skin clean and dry. Continue to monitor for signs of improvement. If your symptoms should worsen, new symptoms develop or any of the signs and symptoms we discussed should arise please return to the emergency room or call 911 (if needed). 2. You can alternate Tylenol and ibuprofen as needed for pain and fever management. 3. We encourage you to follow up with your primary care provider and/or recommended specialist in the next few days for re-evaluation and further care/management. Definitive disposition and diagnosis as appropriate pending reevaluation and review of above. - Related Data Allergies Allergy/AdvReac Type Severity Reaction Status Date / Time No Known Allergies Allergy Verified 11/22/20 21:09 Home Meds: Home Meds . 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 Musculoskeletal History: Reports: Back Pain, Chronic Neurological History: Reports: None Psychiatric History: Reports: Addiction, Anxiety, Depression, PTSD Other Psychiatric History: etoh and drug abuse Endocrine/Metabolic History: Reports: None Insulin Pump Model and Care Manager: None Hematologic History: Reports: None Immunologic History: Reports: None Oncologic (Cancer) History: Reports: None Dermatologic History: Reports: None - Infectious Disease History Infectious Disease History: Reports: Chicken Pox, Hepatitis C, Rubella - Past Surgical History Head Surgeries/Procedures: Reports: None HEENT Surgical History: Reports: Oral Surgery GI Surgical History: Reports: None Female Surgical History: Reports: None Musculoskeletal Surgical History: Reports: Other (See Below) Other Musculoskeletal Surgeries/Procedures:: Back Surgery Social & Family History - Family History Family Medical History: No Pertinent Family History - Caffeine Use Caffeine Use: Reports: Soda ED ROS GENERAL - Review of Systems Review Of Systems: Comprehensive ROS is negative, except as noted in HPI. ED EXAM, SKIN/RASH Exam: See Below (See dictation) Course - Vital Signs Last Recorded V/S: Last Vital Signs Temp 97.3 F 11/22/20 21:09 Pulse 110 H 11/22/20 21:09 Resp 16 11/22/20 21:09 BP 142/78 H 11/22/20 21:09 Pulse Ox 95 11/22/20 21:09 - Orders/Labs/Meds Orders: Active Orders 24 hr Category Date Time Status cephALEXin [Keflex] Med 11/22/20 21:12 Once 500 mg PO ONETIME ONE Departure - Departure Time of Disposition: 21:07 Disposition: Home, Self-Care 01 Clinical Impression: Cellulitis Qualifiers: Site of cellulitis: face Qualified Code(s): L03.211 - Cellulitis of face - Discharge Information Prescriptions: cephALEXin [Keflex] 500 mg PO Q8H 7 Days #21 cap Instructions: Cellulitis, Adult, [id number] Referrals: PCP,None [Primary Care Provider] - Additional Instructions: The following information is given to patients seen in the emergency department who are being discharged to home. This information is to outline your options for follow-up care. We provide all patients seen in our emergency department with a follow-up referral. The need for follow-up, as well as the timing and circumstances, are variable depending upon the specifics of your emergency department visit. If you don't have a primary care physician on staff, we will provide you with a referral. We always advise you to contact your personal physician following an emergency department visit to inform them of the circumstance of the visit and for follow-up with them and/or the need for any referrals to a consulting specialist. The emergency department will also refer you to a specialist when appropriate. This referral assures that you have the opportunity for follow-up care with a specialist. All of these measure are taken in an effort to provide you with optimal care, which includes your follow-up. Under all circumstances we always encourage you to contact your private physician who remains a resource for coordinating your care. When calling for follow-up care, please make the office aware that this follow-up is from your recent emergency room visit. If for any reason you are refused follow-up, please contact the [facility] at and asked to speak to the emergency department charge nurse. [facility] [address] [place] [address] [place] [address] Thank you for choosing the [facility] emergency department in [place] for your medical needs today. It was a pleasure caring for you. Today you were seen in the emergency department for skin infection 1. You were evaluated today on an emergent basis. Keep the skin clean and dry. Continue to monitor for signs of improvement. If your symptoms should worsen, new symptoms develop or any of the signs and symptoms we discussed should arise please return to the emergency room or call [phone] (if needed). 2. You can alternate Tylenol and ibuprofen as needed for pain and fever management. 3. We encourage you to follow up with your primary care provider and/or recommended specialist in the next few days for re-evaluation and further care/management. Sepsis Event Note (ED) - Focused Exam Vital Signs: Vital Signs Temp Pulse Resp BP Pulse Ox 11/22/20 21:09 97.3 F 110 H 16 142/78 H 95 - My Orders Last 24 Hours: My Active Orders 11/22/20 21:12 cephALEXin [Keflex] 500 mg PO ONETIME ONE - Assessment/Plan Last 24 Hours: My Active Orders 11/22/20 21:12 cephALEXin [Keflex] 500 mg PO ONETIME ONE
[2020-11-22] MEDS ORDERED: Cephalexin 500 MG Cap PO ONE (21:12)
[2020-11-22] MEDS ORDERED: traMADol 50 MG Tab PO ONE (21:23)
[2020-11-22] MEDS ORDERED: traMADol 50 MG Tab ONE (21:24)
== END 2020-11-22 21:27 | disposition home or self-care (01) ==
LOC: MW.ED 20:50
DX: L03.211 Cellulitis of face (principal)
CPT/HCPCS: 99282; A9270; 99283